=== PATIENT | female | born 1965 | race Caucasian/White ===

== ENCOUNTER → 2022-05-22 11:15 | Outpatient (BNVA) | payer MEDICARE, MEDICAID, SELFPAY | PROVIDERS: Visit Provider Internal Medicine | DX: C20 Malignant neoplasm of rectum (principal); R19.7 Diarrhea, unspecified; N76.0 Acute vaginitis; D64.9 Anemia, unspecified; R53.83 Other fatigue | CPT/HCPCS: 80053; 82378; 82607; 82784; 83516; 83550; 84443; 85025 ==

== ENCOUNTER 2022-05-26 09:29 | Day surgery (SDC) | payer MEDICARE, MEDICAID, SELFPAY ==
[2022-05-23 12:06] VITALS: BMI 22.4
--- NOTE | 2022-05-26 08:30 | W.PM.OPSFHP ---
Same Day Surgery H&P Indication for Procedure/HPI DATE OF PROCEDURE: May 26, 2022 CHIEF COMPLAINT/INDICATIONFOR SURGICAL PROCEDURE: Explosive diarrhea PREOP DIAGNOSIS: Explosive diarrhea PLANNED PROCEDURE: Operation Date: 05/26/22 11:00 Proposed Procedures p [id number], 33546- Flexible sigmoid R19.7(Not Applicable) - Vinnie Daniel MD s Sigmoidoscopy(Not Applicable) - Vinnie Daniel MD Medications/Allergies* Home Medications Medication Instructions Recorded Confirmed Type baclofen 10 mg tablet 10 mg PO TID 05/22/22 05/23/22 History clonazepam 1 mg tablet 1 mg PO TID 05/22/22 05/23/22 History dicyclomine 20 mg tablet 40 mg PO ONCE 05/22/22 05/23/22 History fluticasone propionate 50 2 spray intranasal DAILY 05/22/22 05/23/22 History mcg/actuation nasal spray,suspension (Flonase Allergy Relief) loratadine 10 mg tablet 10 mg PO DAILY PRN Allergy Symptoms 05/22/22 05/23/22 History multivitamin with minerals 1 tab PO DAILY 05/22/22 05/23/22 History (Hair,Skin and Nails) omeprazole 40 mg capsule,delayed 40 mg PO TID 05/22/22 05/23/22 History release peg 400-propylene glycol 0.4 %-0.3 1 drp ophthalmic (eye) TID PRN dry 05/22/22 05/23/22 History % eye drops (Lubricant Eye (PG-PEG eyes 400)) prenat.vits,ashvin,[id number] 1 tab PO DAILY 05/22/22 05/23/22 History topiramate 200 mg tablet 200 mg PO BID 05/22/22 05/23/22 History Allergies/Adverse Reactions Allergy/AdvReac Type Severity Reaction Status Date / Time No Known Allergies Allergy Unverified 05/22/22 09:12 Pertinent History/Comorbid Conditions* Family History (Updated 05/22/22 @ 09:30 by Dhara Mac LPN) Diabetes Mother High cholesterol Mother Social History Smoking and tobacco status: former smoker Quit status (tobacco): has quit using tobacco Second hand smoke exposure: No Smoking risk assessment/counseling performed?: No Pertinent Exam Findings alert, oriented x 3, clear to auscultation bilaterally, regular rate & rhythm, operative site marked and procedure specific exam findings Recommendations Surgery/Procedure today Coding Level of Care Code Acute 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
[2022-05-26 10:06] VITALS: BP 89/71; PULSE 93; RESP 18; TEMP 36.8; O2SAT 96
[2022-05-26] MEDS: sodium chloride 0.9% 1,000 ML 30 ML IV (10:16)
--- NOTE | 2022-05-26 10:40 | ANES.PREANE2 ---
Pre-Anesthetic Assessment Height/Weight: Height 1.6 m Weight 57.606 kg Temp Pulse Resp BP Pulse Ox O2 Del Method 98.3 F 93 18 89/71 96 05/26/22 10:06 05/26/22 10:06 05/26/22 10:06 05/26/22 10:06 05/26/22 10:06 05/26/22 10:06 Preop Diagnosis: Diarrhea Operation Date: 05/26/22 11:00 Proposed Procedures p [id number], 17654- Flexible sigmoid R19.7(Not Applicable) - Vinnie Daniel MD s Sigmoidoscopy(Not Applicable) - Vinnie Daniel MD Familial anesthetic complications: none Was Beta Linda taken within 24 hours: N/A Was Clonidine taken within 24 hours: N/A Last intake: Intake Last Liquid Date 05/25/22 Last Liquid Time 22:00 Last Solid Date 05/22/22 Last Solid Time 17:00 Social No alcohol and No tobacco Exam alert, oriented x 3, clear to auscultation bilaterally and regular rate & rhythm Airway Mallampati: Class II Dentition: full Pulmonary Asthma CV/HEM Atrial Fibrillation low BP GI hx colorectal cancer Neuropsych Neuropathy (hx broken neck) Anesthetic Plan ASA status: 3 Anesthesia: MAC Risk of > 500 ml blood loss (7ml/kg in children): No Medications/Allergies Home Medications Medication Instructions Recorded Confirmed Last Taken Type baclofen 10 mg tablet 10 mg PO TID 05/22/22 05/26/22 05/25/22 History clonazepam 1 mg tablet 1 mg PO TID 05/22/22 05/26/22 05/25/22 History dicyclomine 20 mg tablet 40 mg PO ONCE 05/22/22 05/23/22 05/23/22 History fluticasone propionate 50 2 spray intranasal DAILY 05/22/22 05/23/22 05/22/22 History mcg/actuation nasal spray,suspension (Flonase Allergy Relief) loratadine 10 mg tablet 10 mg PO DAILY PRN Allergy Symptoms 05/22/22 05/23/22 05/24/22 History multivitamin with minerals 1 tab PO DAILY 05/22/22 05/26/22 05/25/22 History (Hair,Skin and Nails) omeprazole 40 mg capsule,delayed 40 mg PO TID 05/22/22 05/26/22 05/26/22 07:00 History release peg 400-propylene glycol 0.4 %-0.3 1 drp ophthalmic (eye) TID PRN dry 05/22/22 05/26/22 05/25/22 History % eye drops (Lubricant Eye (PG-PEG eyes 400)) prenat.vits,ashvin,[id number] 1 tab PO DAILY 05/22/22 05/26/22 05/25/22 History topiramate 200 mg tablet 200 mg PO BID 05/22/22 05/26/22 05/25/22 History Allergies Allergy/AdvReac Type Severity Reaction Status Date / Time No Known Allergies Allergy Unverified 05/26/22 09:57 Current Medications Generic Name Dose Route Start Last Admin Trade Name Freq PRN Reason Stop Dose Admin Sodium Chloride 1,000 mls @ 30 mls/hr 05/26/22 09:45 05/26/22 10:16 Sodium Chloride 0.9% IV 30 mls/hr .Q24H MELI Administration PFSH Anesthesia Family History (Updated 05/22/22 @ 09:30 by Dhara Mac LPN) Father No problems noted. Mother Diabetes High cholesterol Social History (Updated 05/22/22 @ 09:31 by Dhara Mac LPN) Smoking and tobacco status: former smoker Quit status (tobacco): has quit using tobacco Second hand smoke exposure: No Smoking risk assessment/counseling performed?: No Data Anesthesia Cardiac Studies: No Data to Display
[2022-05-26 12:43] VITALS: BP 91/67; PULSE 80; RESP 16; TEMP 36.1; O2SAT 96
[2022-05-26 13:06] VITALS: BP 103/71; PULSE 79; RESP 18; O2SAT 96
--- NOTE | 2022-05-26 14:10 | ANE.PACU2 ---
Inpatient post-anesthesia follow up: Airway intact: Yes Vital signs: Temperature 97.0 F Pulse Rate 79 Respiratory Rate 18 Blood Pressure 103/71 Pulse Oximetry 96 Oxygen Delivery Me thod Room Air Oxygen Flow Rate Fraction of Inspir ed Oxygen Hydration adequate: Yes Nausea and vomiting: No Pain level: 1 Mental status: Baseline
== END 2022-05-26 13:19 | disposition home or self-care (01) ==
PROVIDERS: PCP Internal Medicine; Visit Provider Internal Medicine
PROC: 0DJ08ZZ Inspection of Upper Intestinal Tract, Via Natural or Artificial Opening Endoscopic (ICD-10-PCS; CPT 43235; principal; 2022-05-26 11:00)
PROC: 0DJD8ZZ Inspection of Lower Intestinal Tract, Via Natural or Artificial Opening Endoscopic (ICD-10-PCS; CPT 45330; 2022-05-26 11:00)
DX: R19.7 Diarrhea, unspecified (principal); Z87.891 Personal history of nicotine dependence; I48.91 Unspecified atrial fibrillation; Z85.038 Personal history of other malignant neoplasm of large intestine
CPT/HCPCS: 43239; 45330; 82274; 83630; 87493; 87506; 88305; J2704; J7030

== ENCOUNTER 2022-06-24 06:00 | Outpatient (RCR) | payer MEDICARE, MEDICAID, SELFPAY | END 2022-07-07 23:59 | disposition home or self-care (01) | LOC: TPT 06:00 | PROVIDERS: PCP Internal Medicine; Visit Provider Internal Medicine | DX: M25.569 Pain in unspecified knee (principal); M54.2 Cervicalgia | CPT/HCPCS: 97163 ==

== ENCOUNTER → 2022-07-01 09:02 | Outpatient (BNVA) | payer MEDICARE, MEDICAID, SELFPAY | PROVIDERS: PCP Internal Medicine; Visit Provider Nurse Practitioner Women's Health | DX: N89.8 Other specified noninflammatory disorders of vagina (principal); S31.41XA Laceration without foreign body of vagina and vulva, initial encounter; X58.XXXA Exposure to other specified factors, initial encounter | CPT/HCPCS: 87070; 87205; 87481; 87512; 87799 ==

== ENCOUNTER → 2022-07-17 11:30 | Outpatient (BNVA) | payer MEDICARE, MEDICAID, SELFPAY | PROVIDERS: PCP Internal Medicine; Visit Provider Nurse Practitioner Family | DX: Z86.79 Personal history of other diseases of the circulatory system (principal); M54.6 Pain in thoracic spine; M54.50 Low back pain, unspecified; Z78.0 Asymptomatic menopausal state; Z13.6 Encounter for screening for cardiovascular disorders; R19.7 Diarrhea, unspecified; E55.9 Vitamin D deficiency, unspecified; N95.2 Postmenopausal atrophic vaginitis; M54.2 Cervicalgia; G89.29 Other chronic pain; M25.561 Pain in right knee; I44.0 Atrioventricular block, first degree | CPT/HCPCS: 80053; 80061; 82306; 82607; 82670; 83001; 83002; 83721; 83735; 84144; 84439; 84443; 85025 ==

== ENCOUNTER 2022-07-29 06:00 | Outpatient (RCR) | payer MEDICARE, MEDICAID, SELFPAY | END 2022-08-06 23:55 | disposition home or self-care (01) | LOC: TPT 06:00 | PROVIDERS: PCP Internal Medicine; Visit Provider Internal Medicine | DX: M25.569 Pain in unspecified knee (principal); M54.2 Cervicalgia | CPT/HCPCS: 97163 ==

== ENCOUNTER → 2022-08-05 10:46 | Outpatient (BNVA) | payer MEDICARE, MEDICAID, SELFPAY | PROVIDERS: PCP Internal Medicine; Referring Provider Nurse Practitioner Family; Visit Provider Orthopaedic Surgery | DX: M17.11 Unilateral primary osteoarthritis, right knee (principal) | CPT/HCPCS: 73560; 73565; 99203 ==

== ENCOUNTER 2022-08-07 06:00 | Outpatient (RCR) | payer MEDICARE, MEDICAID, SELFPAY | END 2022-09-06 23:59 | disposition home or self-care (01) | LOC: TPT 06:00 | PROVIDERS: PCP Internal Medicine; Visit Provider Internal Medicine | DX: M25.569 Pain in unspecified knee (principal); M54.2 Cervicalgia | CPT/HCPCS: 97110 ==

== ENCOUNTER → 2022-09-17 10:20 | Outpatient (BNVA) | payer MEDICARE, MEDICAID, SELFPAY | PROVIDERS: PCP Nurse Practitioner Family; Visit Provider Internal Medicine Cardiovascular Disease | DX: R07.9 Chest pain, unspecified (principal); I44.0 Atrioventricular block, first degree; R03.1 Nonspecific low blood-pressure reading; R00.2 Palpitations; I49.8 Other specified cardiac arrhythmias | CPT/HCPCS: 99204 ==

== ENCOUNTER → 2022-10-14 09:22 | Outpatient (BNVA) | payer MEDICARE, MEDICAID, SELFPAY | PROVIDERS: PCP Nurse Practitioner Family; Visit Provider Nurse Practitioner Family | DX: K21.9 Gastro-esophageal reflux disease without esophagitis (principal); I49.8 Other specified cardiac arrhythmias; R07.9 Chest pain, unspecified | CPT/HCPCS: 80053; 80061; 82607; 83721; 85025 ==

== ENCOUNTER 2022-10-16 10:52 | Outpatient (CLI) | payer MEDICARE, MEDICAID, SELFPAY ==
--- NOTE | 2022-10-16 11:15 | USCV_ITS ---
Dhara Garcia Age: 57 Gender: F : 1965 Exam Date: 10/16/2022 11:22 Ordering Phys: Annabella Powers MD ([email or web address]) Technologist: MARIA FERNANDA Exam Location: [facility] [place] Indication: CHEST PAIN BP: 115 / 63 HR: 80 Rhythm: Sinus Technical Quality: Adequate MEASUREMENTS (Male / Female) Normal Values 2D ECHO LVOT Diameter 2.0 cm LV Ejection Fraction MOD 2C 76.4 % LV Ejection Fraction 2C AL 76.1 % LA Diameter 2.1 cm LA Width 2.6 cm LA Height 3.4 cm RA Width 2.6 cm RA Height 3.3 cm Aorta at Sinotubular Diameter 2.8 cm IVC Diameter 1.2 cm M-MODE Aortic Annulus Diameter 3.4 cm LA Ao Ratio MM 0.6 MV E Point Septal Separation 0.5 cm DOPPLER AV Peak Velocity 223.7 cm/s LVOT Peak Velocity 86.0 cm/s AV Area Cont Eq vti 1.3 cm squared AV Area Cont Eq pk 1.2 cm squared MV Peak Velocity 84.0 cm/s MV Area PHT 5.0 cm squared Mitral E to A Ratio 0.8 MV E' Velocity 35.5 cm/s Mitral E to MV E' Ratio 8.8 Mitral E to LV E' Lateral Ratio 9.3 Mitral E to LV E' Septal Ratio 8.3 TR Peak Velocity 200.5 cm/s TR Peak Gradient 16.1 mmHg TR Mean Velocity 170.8 cm/s TR Mean Gradient 12.3 mmHg TR Velocity Time Integral 60.5 cm TV Peak E Velocity 54.0 cm/s Right Atrial Pressure 3.0 mmHg Pulmonary Artery Systolic Pressu 19.1 mmHg PV Peak Velocity 73.0 cm/s RV Acceleration Time 0.1 s RV Ejection Time 0.3 s RV AcT/ET 0.5 FINDINGS Left Ventricle Normal left ventricular size and systolic function, EF 72 %. Mild left ventricular hypertrophy. No regional wall motion abnormalities. Right Ventricle The right ventricle is normal in size and function. Right Atrium The right atrium is normal in size. Left Atrium The left atrium is normal in size. Mitral Valve No gross abnormalities noted Aortic Valve Moderate aortic valve stenosis, mean gradient 12.8 mmHg, EVELIN 1.3 cm squared. Possible bicuspid aortic valve. Peak velocity of 2.24 m/s with a peak gradient of 20 and a mean gradient of 13 mmHg Tricuspid Valve Trace tricuspid valve regurgitation. Pulmonic Valve Structurally normal pulmonic valve without significant stenosis. There is no pulmonic regurgitation. Pericardium Normal pericardium without effusion. Aorta Normal ascending aorta dimension. IVC The inferior vena cava appears normal. CONCLUSIONS Normal left ventricular size and systolic function, EF 72 %. Mild left ventricular hypertrophy. No regional wall motion abnormalities. Moderate aortic valve stenosis, mean gradient 12.8 mmHg, EVELIN 1.3 cm squared. Possible bicuspid aortic valve. Peak velocity of 2.24 m/s with a peak gradient of 20 and a mean gradient of 13 mmHg. Trace tricuspid valve regurgitation. Estimated pulmonary artery peak systolic pressure of 19 mmHg There is no pericardial effusion. There are no intracardiac masses. No similar previous studies are available for comparison Dr Annabella Powers MD [facility] (Electronically Signed) Final Date: 17 October 2022 16:51 S
== END 2022-10-16 10:53 | disposition home or self-care (01) ==
PROVIDERS: PCP Nurse Practitioner Family; Visit Provider Internal Medicine Cardiovascular Disease
DX: R06.09 Other forms of dyspnea (principal)
CPT/HCPCS: 93306

== ENCOUNTER 2022-10-28 09:10 | Outpatient (CLI) | payer MEDICARE, MEDICAID, SELFPAY ==
--- NOTE | 2022-10-28 09:30 | US_ITS ---
WS: [id number] ULTRASOUND ABDOMEN CLINICAL INFORMATION: R10.9 - Unspecified abdominal pain COMPARISON: None. FINDINGS: Liver Size: Normal. Craniocaudal length: 13.7 cm. Echogenicity: Heterogeneous Surface nodularity: None. Mass (size and location): None. Bile ducts Intrahepatic ducts: Normal. Common bile duct diameter: 0.3 cm. Gallbladder Normal. Gallstones: None. Gallbladder sludge: None. Gallbladder wall thickening: None. Pericholecystic fluid: None. Sonographic Rockwell sign: Absent. Pancreas Normal as visualized. Spleen Splenomegaly: None. Craniocaudal length: 8.8 cm. Right kidney: Normal. Hydronephrosis: None. Size: 9.7 cm x 4.1 cm x 4.1 cm Left kidney: Normal. Hydronephrosis: None. Size: 9.5 cm x 4.5 cm x 3.8 cm. Abdominal aorta and IVC Visualized portions are normal. Ascites: None. US/US abdomen complete* [id number] IMPRESSION: 1. Liver is normal in size.Heterogeneous liver echotexture likely due to fatty infiltration. 2. Normal gallbladder. Normal common bile duct. 3. No hydronephrosis in either kidney. 4. Normal spleen.
== END 2022-10-28 09:11 | disposition home or self-care (01) ==
LOC: RAD 09:10
PROVIDERS: PCP Nurse Practitioner Family; Visit Provider Nurse Practitioner Family
DX: R10.9 Unspecified abdominal pain (principal)
CPT/HCPCS: 76700

== ENCOUNTER → 2022-11-05 13:20 | Outpatient (BNVA) | payer MEDICARE, MEDICAID, SELFPAY | PROVIDERS: PCP Nurse Practitioner Family; Visit Provider Nurse Practitioner Family | DX: R39.9 Unspecified symptoms and signs involving the genitourinary system (principal) | CPT/HCPCS: 81000 ==

== ENCOUNTER 2022-12-02 06:00 | Outpatient (RCR) | payer MEDICARE, MEDICAID, SELFPAY | END 2022-12-05 23:59 | disposition home or self-care (01) | LOC: SPT 06:00 | PROVIDERS: PCP Nurse Practitioner Family; Visit Provider Nurse Practitioner Family | DX: M95.2 Other acquired deformity of head (principal) | CPT/HCPCS: 97161 ==

== ENCOUNTER 2022-12-06 06:00 | Outpatient (RCR) | payer MEDICARE, MEDICAID, SELFPAY | END 2023-01-04 23:59 | disposition home or self-care (01) | LOC: SPT 06:00 | PROVIDERS: PCP Nurse Practitioner Family; Visit Provider Nurse Practitioner Family | DX: N95.2 Postmenopausal atrophic vaginitis (principal) | CPT/HCPCS: 97110; 97530 ==

== ENCOUNTER → 2022-12-17 15:31 | Outpatient (BNVA) | payer MEDICARE, MEDICAID, SELFPAY | PROVIDERS: PCP Nurse Practitioner Family; Visit Provider Nurse Practitioner Family | DX: N89.8 Other specified noninflammatory disorders of vagina (principal) | CPT/HCPCS: 81003 ==

== ENCOUNTER → 2023-01-09 10:26 | Outpatient (BNVA) | payer MEDICARE, MEDICAID, SELFPAY | PROVIDERS: PCP Nurse Practitioner Family; Visit Provider Nurse Practitioner Family | DX: M79.641 Pain in right hand (principal); L03.011 Cellulitis of right finger; Z23 Encounter for immunization | CPT/HCPCS: 73130 ==

== ENCOUNTER → 2023-01-15 13:28 | Outpatient (BNVA) | payer MEDICARE, MEDICAID, SELFPAY | PROVIDERS: PCP Nurse Practitioner Family; Referring Provider Nurse Practitioner Family; Visit Provider Nurse Practitioner Family | DX: L03.011 Cellulitis of right finger (principal); W55.01XA Bitten by cat, initial encounter | CPT/HCPCS: 73130; 99213 ==

== ENCOUNTER 2023-01-20 09:30 | Oncology outpatient (recurring) (ONCR) | payer MEDICARE, MEDICAID, SELFPAY | END 2023-02-04 23:59 | disposition home or self-care (01) | PROVIDERS: PCP Nurse Practitioner Family; Visit Provider Internal Medicine Medical Oncology | DX: Z08 Encounter for follow-up examination after completed treatment for malignant neoplasm; Z85.048 Personal history of other malignant neoplasm of rectum, rectosigmoid junction, and anus; M81.0 Age-related osteoporosis without current pathological fracture; Z92.21 Personal history of antineoplastic chemotherapy; Z92.3 Personal history of irradiation; Z87.891 Personal history of nicotine dependence | CPT/HCPCS: 99205 ==

== ENCOUNTER → 2023-01-28 14:08 | Outpatient (BNVA) | payer MEDICARE, MEDICAID, SELFPAY | PROVIDERS: PCP Nurse Practitioner Family; Visit Provider Nurse Practitioner Family | DX: L03.011 Cellulitis of right finger (principal); W55.01XA Bitten by cat, initial encounter | CPT/HCPCS: 99213 ==

== ENCOUNTER 2023-02-03 13:59 | Outpatient (CLI) | payer MEDICARE, MEDICAID, SELFPAY ==
--- NOTE | 2023-02-03 14:00 | XR_ITS ---
WS: [id number] SCREENING DEXA SCAN [email or web address] CLINICAL INFORMATION: Z78.0 - Asymptomatic menopausal state COMPARISON: None. FINDINGS: The L1-L4 bone mineral density measures 1.123 g/cm2. This corresponds to a T score score of -0.5 and Z score of 0.8. Left femoral neck bone mineral density measures 0.858 g/cm2. This corresponds to a T score of -1.2 an d Z score of -0.2. Right femoral neck bone mineral density measures 0.823 g/cm2. This corresponds to a T score -1.5of an d Z score of -0.5. Mean femoral neck bone mineral density measures 0.841 g/cm2. This corresponds to a T score of -1.3 an d Z score of -0.4. XR/XR DEXA axial skeleton* [id number] IMPRESSION: Normal bone mineralization lumbar spine. Osteopenia femoral necks Patient's FRAX calculated 10 year probability for major osteoporotic fracture i s 8.2 % and osteoporotic hip fracture is 0.8%.
== END 2023-02-03 14:00 | disposition home or self-care (01) ==
LOC: RAD 14:01
PROVIDERS: PCP Nurse Practitioner Family; Visit Provider Nurse Practitioner Family
DX: Z13.820 Encounter for screening for osteoporosis (principal); Z78.0 Asymptomatic menopausal state; M85.852 Other specified disorders of bone density and structure, left thigh; M85.851 Other specified disorders of bone density and structure, right thigh
CPT/HCPCS: 77080

== ENCOUNTER → 2023-02-10 09:25 | Outpatient (BNVA) | payer MEDICARE, MEDICAID, SELFPAY | PROVIDERS: PCP Nurse Practitioner Family; Visit Provider Nurse Practitioner Family | DX: R39.9 Unspecified symptoms and signs involving the genitourinary system (principal); M54.2 Cervicalgia; G89.29 Other chronic pain; E78.5 Hyperlipidemia, unspecified; M85.80 Other specified disorders of bone density and structure, unspecified site; K21.9 Gastro-esophageal reflux disease without esophagitis; K58.9 Irritable bowel syndrome, unspecified | CPT/HCPCS: 80053; 80061; 81003; 84443; 85025 ==

== ENCOUNTER 2023-03-23 10:36 | Outpatient (CLI) | payer MEDICARE, MEDICAID, SELFPAY ==
--- NOTE | 2023-03-23 12:00 | CTR_ITS ---
PROCEDURE INFORMATION: Exam: CT Chest With Contrast; Diagnostic Exam date and time: 03/23/2023 12:12 PM Age: 57 years old Clinical indication: Condition or disease; Other: Colorectal cancer; Prior surgery; Surgery date: 6+ months; Surgery type: Hyst; Additional info: Follow up, to be performed in March 2023 TECHNIQUE: Imaging protocol: Diagnostic computed tomography of the chest with contrast. Radiation optimization: All CT scans at this facility use at least one of these dose optimization techniques: automated exposure control; mA and/or kV adjustment per patient size (includes targeted exams where dose is matched to clinical indication); or iterative reconstruction. Contrast material: OMNI 350; Contrast volume: 95 ml; Contrast route: INTRAVENOUS (IV); REPORTING DATA: Count of CT and Cardiac NM exams in prior 12 months: This patient has received 0 known CTs and 0 known cardiac nuclear medicine studies in the 12 months prior to the current study. COMPARISON: US abdomen complete* [id number] 10/28/2022 9:28 AM RADIATION DOSE METRICS: Total DLP (mGy-cm): 622.51 FINDINGS: Lungs: Lingular 5.6 mm pulmonary nodule abutting the major fissure, series 4, image 44. Emphysematous changes. Right lower lobe calcified granuloma. Pleural spaces: Unremarkable. No pneumothorax. No pleural effusion. Heart: Unremarkable. No cardiomegaly. No pericardial effusion. Lymph nodes: Unremarkable. No enlarged lymph nodes. Vasculature: Ascending thoracic aorta dilated at 3.6 cm. Bones/joints: Unremarkable. No acute fracture. Soft tissues: Unremarkable. COMMENTS: In the absence of a history or active diagnosis of lung cancer, it is recommended that this patient with emphysema be evaluated for enrollment in a low dose CT lung cancer screening program. PROCEDURE INFORMATION: Exam: CT Abdomen And Pelvis With Contrast Exam date and time: 03/23/2023 12:12 PM Age: 57 years old Clinical indication: Condition or disease; Other: Colorectal cancer; Prior surgery; Surgery date: 6+ months; Surgery type: Hyst; Additional info: Follow up, to be performed in March 2023 TECHNIQUE: Imaging protocol: Computed tomography of the abdomen and pelvis with contrast. Radiation optimization: All CT scans at this facility use at least one of these dose optimization techniques: automated exposure control; mA and/or kV adjustment per patient size (includes targeted exams where dose is matched to clinical indication); or iterative reconstruction. Contrast material: OMNI 350; Contrast volume: 95 ml; Contrast route: INTRAVENOUS (IV); REPORTING DATA: Count of CT and Cardiac NM exams in prior 12 months: This patient has received 0 known CTs and 0 known cardiac nuclear medicine studies in the 12 months prior to the current study. COMPARISON: US abdomen complete* [id number] 10/28/2022 9:28 AM RADIATION DOSE METRICS: Total DLP (mGy-cm): 622.51 FINDINGS: Liver: Hepatic steatosis. Gallbladder and bile ducts: Normal. No calcified stones. No ductal dilation. Pancreas: Normal. No ductal dilation. Spleen: Normal. No splenomegaly. Adrenal glands: Normal. No mass. Kidneys and ureters: Normal. No hydronephrosis. Stomach and bowel: Constipation. Appendix: No evidence of appendicitis. Intraperitoneal space: Unremarkable. No free air. No significant fluid collection. Vasculature: Unremarkable. No abdominal aortic aneurysm. Lymph nodes: Unremarkable. No enlarged lymph nodes. Urinary bladder: Unremarkable as visualized. Reproductive: Unremarkable as visualized. Bones/joints: Unremarkable. No acute fracture. Soft tissues: Unremarkable. CT/CT chest abdpel w/*[id number] IMPRESSION: 1. Lingular 5.6 mm pulmonary nodule abutting the major fissure, series 4, image 44. 2. Ascending thoracic aorta dilated at 3.6 cm. 3. Emphysematous changes. 4. Right lower lobe calcified granuloma. IMPRESSION: 1. Negative for acute inflammatory process in the abdomen or pelvis. 2. Hepatic steatosis. 3. Constipation.
[2023-03-23] MEDS: iohexol 350 mg/mL 500 mL Btl (per mL) PO (12:16)
[2023-03-23] MEDS: iohexol 350 mg/mL 500 mL Btl (per mL) IV (12:18)
== END 2023-03-23 10:37 | disposition home or self-care (01) ==
PROVIDERS: PCP Nurse Practitioner Family; Visit Provider Internal Medicine Medical Oncology
DX: C21.1 Malignant neoplasm of anal canal (principal); Z90.710 Acquired absence of both cervix and uterus; R91.1 Solitary pulmonary nodule; K76.0 Fatty (change of) liver, not elsewhere classified; K59.00 Constipation, unspecified
CPT/HCPCS: 71260; 74177; Q9967

== ENCOUNTER → 2023-06-09 15:43 | Outpatient (BNVA) | payer MEDICARE, MEDICAID, SELFPAY | PROVIDERS: PCP Nurse Practitioner Family; Visit Provider Nurse Practitioner Family | DX: R30.0 Dysuria (principal) | CPT/HCPCS: 81003 ==

== ENCOUNTER → 2023-07-23 08:58 | Outpatient (BNVA) | payer MEDICARE, MEDICAID, SELFPAY | PROVIDERS: PCP Nurse Practitioner Family; Visit Provider Nurse Practitioner Family | DX: N89.8 Other specified noninflammatory disorders of vagina (principal) | CPT/HCPCS: 81003; 87491; 87591 ==

== ENCOUNTER → 2023-10-01 12:47 | Outpatient (BNVA) | payer MEDICARE, MEDICAID, SELFPAY | PROVIDERS: PCP Nurse Practitioner Family; Visit Provider Nurse Practitioner Family | DX: R19.7 Diarrhea, unspecified (principal) | CPT/HCPCS: 87045; 87177; 87209; 87338; 87427; 87449; 87493 ==

== ENCOUNTER → 2023-11-02 10:41 | Outpatient (BNVA) | payer MEDICARE, MEDICAID, SELFPAY | PROVIDERS: PCP Nurse Practitioner Family; Visit Provider Nurse Practitioner Family | DX: R41.3 Other amnesia (principal); E78.5 Hyperlipidemia, unspecified; Z79.899 Other long term (current) drug therapy | CPT/HCPCS: 80053; 80061; 81003; 82306; 82607; 83735; 84443; 85025 ==

== ENCOUNTER → 2023-12-04 08:11 | Outpatient (BNVA) | payer MEDICARE, MEDICAID, SELFPAY | PROVIDERS: PCP Nurse Practitioner Family; Visit Provider Specialist | DX: R41.3 Other amnesia (principal); G43.709 Chronic migraine without aura, not intractable, without status migrainosus | CPT/HCPCS: 96116; 99205 ==

== ENCOUNTER 2023-12-25 09:30 | Outpatient (CLI) | payer MEDICARE, MEDICAID, SELFPAY ==
--- NOTE | 2023-12-25 09:38 | XR_ITS ---
WS: [id number] Exam: XR cervical spine 3V* [id number] Date/Time of Exam: 12/25/2023 9:45 AM Reason For Exam: M54.2 - Cervicalgia There is posterior fusion of the cervical spine extending from C4-C7 with pedicle screws and posterio r rods. Anterior fusion hardware noted at C4-5. The fusion is ossified and in satisfactory alignment. No sign of hardware complication. Degenerative facet changes at C3-3 and C3-4. Paraspinal soft tissu es are unremarkable. The odontoid is intact. IMPRESSION: 1. Intact cervical fusion from C4-C7. 2. No fracture or malalignment. Moderate degenerative changes.
== END 2023-12-25 09:31 | disposition home or self-care (01) ==
LOC: LAB 09:32
PROVIDERS: PCP Nurse Practitioner Family; Visit Provider Nurse Practitioner Family
DX: M54.2 Cervicalgia (principal); G89.29 Other chronic pain; M43.22 Fusion of spine, cervical region
CPT/HCPCS: 72040

== ENCOUNTER 2023-12-28 06:00 | Outpatient (RCR) | payer MEDICARE, MEDICAID, SELFPAY | END 2024-01-05 23:59 | disposition home or self-care (01) | LOC: TPT 06:00 | PROVIDERS: PCP Nurse Practitioner Family; Visit Provider Nurse Practitioner Family | DX: M54.2 Cervicalgia (principal); G89.29 Other chronic pain | CPT/HCPCS: 97110; 97163 ==

== ENCOUNTER 2024-01-20 13:44 | Outpatient (RCR) | payer MEDICARE, MEDICAID, SELFPAY | END 2024-02-05 23:59 | disposition home or self-care (01) | LOC: TPT 13:44 | PROVIDERS: PCP Nurse Practitioner Family; Visit Provider Nurse Practitioner Family | DX: M54.2 Cervicalgia (principal); G89.29 Other chronic pain | CPT/HCPCS: 97110; 97140 ==

== ENCOUNTER 2024-01-27 12:31 | Outpatient (CLI) | payer MEDICARE, MEDICAID, SELFPAY ==
--- NOTE | 2024-01-27 12:39 | MR_ITS ---
WS: [id number] MRI HEAD WITHOUT CONTRAST TECHNIQUE: Sagittal T1, T2 axial, T2 axial FLAIR, axial and coronal T1 images, axial susceptibility w eighted imaging, axial diffusion weighted images, and coronal T2 images were obtained. CLINICAL INFORMATION: MEMORY LOSS COMPARISON: None. FINDINGS: No evidence of restricted diffusion to suggest acute ischemia. Minimal cerebellar tonsillar ectopia e ccentric to the LEFT. No significant crowding of the foramen magnum. Mild to moderate patchy supraten torial white matter changes can be seen with hypertension, diabetes, and small vessel disease in a pa tient this age. No significant parenchymal volume loss. Normal vascular flow voids at the skull base. No extra-axial fluid collections. No evidence of mass or mass effect. Paranasal sinuses are well aer ated. Normal posterior nasopharynx. Mastoid air cells are well aerated. No hemosiderin on the susceptibly weighted images. Normal optic chiasm and pituitary infundibulum. Te mporal lobes and hippocampal formations are normal in appearance. No signal abnormalities in the linnea al temporal lobes. Proximal 7th and 8th cranial nerves appear grossly normal. No other remarkable abn ormalities on this noncontrast study. MR/MR head wo con* [id number] IMPRESSION: 1. No evidence of restricted diffusion to suggest acute ischemia. 2. Mild to moderate patchy supratentorial white matter changes can be seen wit h hypertension, diabetes, or small vessel disease in a patient this age. No sig nificant parenchymal volume loss. 3. Temporal lobes and hippocampal formations are normal in appearance. 4. No signal abnormalities in the mesial temporal lobes. No significant focal atrophy. 5. Normal optic chiasm and pituitary infundibulum. 6. No hemosiderin on susceptibility-weighted images. 7. Minimal incidental cerebellar tonsillar ectopia. 8. No other remarkable findings.
== END 2024-01-27 12:32 | disposition home or self-care (01) ==
LOC: RAD 12:31
PROVIDERS: PCP Nurse Practitioner Family; Visit Provider Specialist
DX: R41.3 Other amnesia (principal)
CPT/HCPCS: 70551

== ENCOUNTER 2024-02-06 06:00 | Outpatient (RCR) | payer MEDICARE, MEDICAID, SELFPAY | END 2024-03-06 23:59 | disposition home or self-care (01) | LOC: TPT 06:00 | PROVIDERS: PCP Nurse Practitioner Family; Visit Provider Nurse Practitioner Family | DX: M54.2 Cervicalgia (principal); G89.29 Other chronic pain | CPT/HCPCS: 97110; 97140; 97164 ==

== ENCOUNTER 2024-02-10 09:36 | Outpatient (CLI) | payer MEDICARE, MEDICAID, SELFPAY ==
--- NOTE | 2024-02-10 10:15 | MR_ITS ---
WS: [id number] MRI CERVICAL SPINE NONCONTRAST TECHNIQUE: Sagittal T1, T2 and STIR imaging. Axial T2, gradient, and fiesta imaging. CLINICAL INFORMATION: M54.2 - Cervicalgia COMPARISON: None. FINDINGS: Straightening of the normal cervical lordosis. Disc bulging worse at C3-C4. Small disc protrusions in the upper thoracic spine at C7-T1, T1-2, T2-3 with slight contact of the cervical cord. Anterior cer vical plate fusion C4-5. Interbody bony fusion C4-C6. Posterior marisol and screw fixation C4-C7. Wide de compressive laminectomy defects. C2-C3: Moderate facet arthropathy. Mild LEFT foraminal narrowing. Spinal canal is patent. C3-C4: Disc osteophyte complex with slight contact of the cervical cord. Mild central canal stenosis. Mild LEFT foraminal narrowing. Moderate facet arthropathy. C4-C5: Prior postoperative changes with laminectomy defects. Spinal canal and foramen are patent. C5-C6: Prior postoperative changes. Decompressive laminectomy defects. Spinal canal and foramen are p atent. C6-C7: Decompressive laminectomies. Mild LEFT and no significant RIGHT foraminal narrowing. Spinal ca nal is patent. C7-T1: Shallow central disc protrusion. Mild central canal stenosis. Bilateral foraminal protrusions with moderate to severe LEFT and moderate RIGHT foraminal narrowing. Mild central canal stenosis T1-T2 and T2-3 with small central protrusions. Moderate LEFT foraminal na rrowing T1-2. In addition, bilateral foraminal foraminal protrusions at T2-3 only covered on the sagittal imaging w ith moderate LEFT greater than RIGHT foraminal narrowing. Small RIGHT thyroid nodule measuring 9 mm. Visualized brain stem structures: Normal. Prevertebral soft tissues: Normal. MR/MR cervical spin wo con* [id number] IMPRESSION: 1. Straightening of the normal cervical doses with postoperative changes descr ibed above. 2. Mild central canal stenosis C3-C4 with a small central protrusion and sligh t contact of the cervical cord. 3. Moderate to severe LEFT C7-T1 foraminal narrowing with a LEFT foraminal pro trusion. 4. Mild central canal stenosis at C7-T1, T1-2 and and T2-3. 5. Small bilateral foraminal protrusions at T1-2 and T2-3 with bilateral segundo inal narrowing.
== END 2024-02-10 09:37 | disposition home or self-care (01) ==
LOC: RAD 09:37
PROVIDERS: PCP Nurse Practitioner Family; Visit Provider Nurse Practitioner Family
DX: M51.24 Other intervertebral disc displacement, thoracic region (principal); M99.61 Osseous and subluxation stenosis of intervertebral foramina of cervical region; M99.62 Osseous and subluxation stenosis of intervertebral foramina of thoracic region; M47.892 Other spondylosis, cervical region; M25.78 Osteophyte, vertebrae; M96.1 Postlaminectomy syndrome, not elsewhere classified; E04.1 Nontoxic single thyroid nodule
CPT/HCPCS: 72141

== ENCOUNTER 2024-02-25 15:55 | Outpatient (CLI) | payer MEDICARE, MEDICAID, SELFPAY | END 2024-02-25 15:56 | disposition home or self-care (01) | LOC: SPT 15:55 | PROVIDERS: PCP Nurse Practitioner Family; Visit Provider Orthopaedic Surgery | DX: Z46.89 Encounter for fitting and adjustment of other specified devices (principal); G89.29 Other chronic pain; M54.2 Cervicalgia | CPT/HCPCS: 97760; 99204; L0172 ==

== ENCOUNTER → 2024-03-30 12:03 | Outpatient (BNVA) | payer MEDICARE, MEDICAID, SELFPAY | PROVIDERS: PCP Nurse Practitioner Family; Visit Provider Nurse Practitioner Family | DX: R30.0 Dysuria (principal); R10.9 Unspecified abdominal pain; C21.0 Malignant neoplasm of anus, unspecified; K58.2 Mixed irritable bowel syndrome; N95.2 Postmenopausal atrophic vaginitis; M54.2 Cervicalgia; G89.29 Other chronic pain | CPT/HCPCS: 81003; 87086 ==

== ENCOUNTER → 2024-04-15 13:14 | Outpatient (BNVA) | payer MEDICARE, MEDICAID, SELFPAY | PROVIDERS: PCP Nurse Practitioner Family; Visit Provider Nurse Practitioner Family | DX: N89.8 Other specified noninflammatory disorders of vagina (principal) | CPT/HCPCS: 87070; 87205 ==

== ENCOUNTER → 2024-05-24 14:34 | Outpatient (BNVA) | payer MEDICARE, MEDICAID, SELFPAY | PROVIDERS: PCP Nurse Practitioner Family; Visit Provider Orthopaedic Surgery | DX: M47.12 Other spondylosis with myelopathy, cervical region (principal) | CPT/HCPCS: 99214 ==

== ENCOUNTER 2024-05-30 08:00 | Oncology outpatient (recurring) (ONCR) | payer MEDICARE, MEDICAID, SELFPAY ==
[2024-05-13 07:54] LABS: Basophils % 0.2 %; Eosinophils # 0.1 10^3/uL (0.0-0.8); Eosinophils % 2.2 %; Hematocrit 41.3 % (36-47); Lymphocytes # 1.9 10^3/uL (0.8-4.8); Lymphocytes % 43.4 %; Mean Corpuscular HGB Conc 33.9 g/dL (30-55); Mean Corpuscular Hemoglobin 32.4 pg (27-33); Mean Corpuscular Volume 95.6 fl (85-98); Mean Platelet Volume 9.3 fL (7.4-10.4); Monocytes # 0.4 10^3/uL (0.2-0.9); Monocytes % 7.8 %; Neutrophils # 2.07 10^3/uL (1.8-7.7); Neutrophils % 46.4 %; Nucleated Red Blood Cells % 0 %; Platelet Count 195 10^3/cmm (157-399); Red Blood Count 4.32 10^6/uL (3.85-5.65); Red Cell Distribution Width 13.2 % (12.1-15.1); White Blood Count 4.47 10^3/uL (3.29-11.43)
[2024-05-13 08:14] LABS: Alanine Aminotransferase 16 U/L (0-33); Albumin Level 4.3 g/dL (3.5-5.2); Alkaline Phosphatase 82 U/L (35-105); Anion Gap 15.4 (5-19); Aspartate Amino Transferase 19 U/L (0-32); Blood Urea Nitrogen 38 mg/dL (6-20); Calcium 9.5 mg/dL (8.5-10.5); Carbon Dioxide 22 mmol/L (22-29); Chloride 108 mmol/L (98-107); Globulin 2.5 g/dL (1.3-4.6); Glomerular Filtration Rate 56.7 mL/min (90-130); Glucose 99 mg/dL (65-115); Osmolality Calculated 303 mOsm/kg (285-295); Potassium 3.4 mmol/L (3.5-5.1); Sodium 142 mmol/L (136-145); Total Bilirubin 0.2 mg/dL (0.15-1.2); Total Protein 6.8 g/dL (6.6-8.7)
--- NOTE | 2024-05-30 08:00 | CTR_ITS ---
PROCEDURE INFORMATION: Exam: CT Chest With Contrast; Diagnostic Exam date and time: 05/30/2024 9:20 AM Age: 58 years old Clinical indication: Constipation. Colorectal cancer; prior hysterectomy. History of anal cancer and pulmonary nodule TECHNIQUE: Imaging protocol: Diagnostic computed tomography of the chest with contrast. Radiation optimization: All CT scans at this facility use at least one of these dose optimization techniques: automated exposure control; mA and/or kV adjustment per patient size (includes targeted exams where dose is matched to clinical indication); or iterative reconstruction. Contrast material: OMNI 350; Contrast volume: 95 ml; Contrast route: INTRAVENOUS (IV); COMPARISON: CT chest abdpel w/*[id number] 03/23/2023 12:12 PM RADIATION DOSE METRICS: Total DLP (mGy-cm): 569.71 FINDINGS: Lungs: Incidental benign calcified granuloma in the right lower lobe. Pleural spaces: Unremarkable. No pneumothorax. No pleural effusion. Heart: Unremarkable. No cardiomegaly. No pericardial effusion. Lymph nodes: Unremarkable. No enlarged lymph nodes. Vasculature: Aortic root is upper limits of normal in caliber measuring 4.0 cm. The ascending thoracic aorta is normal in caliber measuring 3.3 cm. Intraperitoneal space: There is a small defect at the posterior aspect of the left hemidiaphragm measuring 9 mm in the AP dimension with a small amount of mesenteric fat herniating into the left lower thorax. Bones/joints: There are degenerative changes in the thoracic spine. Soft tissues: Unremarkable. PROCEDURE INFORMATION: Exam: CT Abdomen And Pelvis With Contrast Exam date and time: 05/30/2024 9:20 AM Age: 58 years old Clinical indication: Constipation. Colorectal cancer; prior hysterectomy. History of anal cancer and pulmonary nodule TECHNIQUE: Imaging protocol: Computed tomography of the abdomen and pelvis with contrast. Radiation optimization: All CT scans at this facility use at least one of these dose optimization techniques: automated exposure control; mA and/or kV adjustment per patient size (includes targeted exams where dose is matched to clinical indication); or iterative reconstruction. Contrast material: OMNI 350; Contrast volume: 95 ml; Contrast route: INTRAVENOUS (IV); COMPARISON: CT chest abdpel w/*[id number] 03/23/2023 12:12 PM RADIATION DOSE METRICS: Total DLP (mGy-cm): 569.71 FINDINGS: Liver: Regional decreased attenuation of the left hepatic lobe at the ligamentum teres suggestive of focal fatty infiltration. Gallbladder and biliary ducts: Normal. No calcified stones. No ductal dilation. Pancreas: Normal. No ductal dilation. Spleen: Normal. No splenomegaly. Adrenal glands: Normal. No mass. Kidneys and ureters: Normal. No hydronephrosis. Stomach and bowel: Colonic constipation is present. Anorectal mucosal thickening. Appendix: A normal appendix is identified. Intraperitoneal space: Unremarkable. No free air. No significant fluid collection. Vasculature: Unremarkable. No abdominal aortic aneurysm. Lymph nodes: Unremarkable. No enlarged lymph nodes. Urinary bladder: Unremarkable as visualized. Reproductive: The uterus is not visualized, consistent with hysterectomy. Bones/joints: Unremarkable. No acute fracture. Soft tissues: Unremarkable. CT/CT chest abdpel w/*[id number] IMPRESSION: 1. No acute findings. Incidentally noted is a benign calcified granuloma in the right lower lobe. 2. Small defect at the posterior aspect of the left hemidiaphragm as described above. IMPRESSION: 1. There is anorectal mucosal thickening. This may represent a nonspecific proctitis. Residual/recurrent neoplasm cannot be excluded. 2. Colonic constipation is present.
[2024-05-30 09:10] LABS: Basophils % 0.4 %; Eosinophils # 0.1 10^3/uL (0.0-0.8); Eosinophils % 1.9 %; Hematocrit 43.6 % (36-47); Lymphocytes # 2.1 10^3/uL (0.8-4.8); Lymphocytes % 44.3 %; Mean Corpuscular Hemoglobin 31.9 pg (27-33); Mean Corpuscular Volume 96.7 fl (85-98); Mean Platelet Volume 9.6 fL (7.4-10.4); Monocytes # 0.4 10^3/uL (0.2-0.9); Monocytes % 8.6 %; Neutrophils # 2.06 10^3/uL (1.8-7.7); Neutrophils % 44.6 %; Nucleated Red Blood Cells % 0 %; Platelet Count 196 10^3/cmm (157-399); Red Blood Count 4.51 10^6/uL (3.85-5.65); Red Cell Distribution Width 13.2 % (12.1-15.1); White Blood Count 4.63 10^3/uL (3.29-11.43)
[2024-05-30 09:36] LABS: Alanine Aminotransferase 26 U/L (0-33); Albumin Level 4.5 g/dL (3.5-5.2); Alkaline Phosphatase 82 U/L (35-105); Aspartate Amino Transferase 25 U/L (0-32); Blood Urea Nitrogen 19 mg/dL (6-20); Calcium 9.2 mg/dL (8.5-10.5); Carbon Dioxide 21 mmol/L (22-29); Chloride 108 mmol/L (98-107); Creatinine Clr Calc Pharmacy 54.3766; Globulin 2.8 g/dL (1.3-4.6); Glomerular Filtration Rate 64.1 mL/min (90-130); Glucose 86 mg/dL (65-115); Osmolality Calculated 294 mOsm/kg (285-295); Sodium 141 mmol/L (136-145); Total Bilirubin 0.3 mg/dL (0.15-1.2); Total Protein 7.3 g/dL (6.6-8.7)
[2024-05-30] MEDS: iohexol 350 mg/mL 500 mL Btl (per mL) PO (09:47)
[2024-05-30] MEDS: iohexol 350 mg/mL 500 mL Btl (per mL) IV (09:48)
[2024-05-30 10:02] LABS: Bilirubin Urine Negative (Negative); Blood Urine Negative (Negative); Glucose Urine UA Negative (Normal); Ketones Urine Negative (Negative); Leukocyte Esterase Urine Negative (Negative); Nitrate Urine Negative (Negative); Protein Urine Negative (Negative); Specific Gravity, Urine 1.019 (1.005-1.030); Urine Appearance Clear (CLEAR); Urine Color Yellow (Yellow); pH Urine 6.5 (5-7)
[2024-05-30 10:08] LABS: Add Urine Microscopic? YES; Bacteria Urine None Seen /hpf; Hyaline Casts Urine 0-4 /lpf; RBC Urine 0-2 /hpf (0-2); Squamous Epithelial Cell Urine 0-5 /hpf (0-5); WBC Urine 0-5 /hpf (0-5)
== END 2024-06-06 23:59 | disposition home or self-care (01) ==
LOC: RAD 08:08 → ONCMED 06-02 09:34
PROVIDERS: Absent Provider Orthopaedic Surgery; PCP Nurse Practitioner Family; Visit Provider Nurse Practitioner Family
DX: C21.0 Malignant neoplasm of anus, unspecified (principal); R91.1 Solitary pulmonary nodule; Z53.9 Procedure and treatment not carried out, unspecified reason; Z01.818 Encounter for other preprocedural examination; K59.09 Other constipation; K62.89 Other specified diseases of anus and rectum; J84.10 Pulmonary fibrosis, unspecified
CPT/HCPCS: 36415; 71260; 74177; 80053; 81001; 85025; 99213

== ENCOUNTER → 2024-06-09 08:35 | Outpatient (BNVA) | payer MEDICARE, MEDICAID, SELFPAY | PROVIDERS: PCP Nurse Practitioner Family; Referring Provider Nurse Practitioner Family; Visit Provider Student in an Organized Health Care Education/Training Program | DX: Z12.11 Encounter for screening for malignant neoplasm of colon (principal) | CPT/HCPCS: 99024; 99204 ==

== ENCOUNTER 2024-06-27 05:43 | Day surgery (SDC) | payer MEDICARE, MEDICAID, SELFPAY ==
[2024-06-27 06:18] VITALS: BP 105/70; PULSE 72; RESP 18; TEMP 36.1; O2SAT 97; BMI 21.9
[2024-06-27] MEDS: sodium chloride 0.9% 1,000 ML 30 ML IV (06:38)
--- NOTE | 2024-06-27 06:53 | P.ANESASSM_ITS ---
Pre-Anesthetic Assessment Height/Weight: Height 1.57 m Weight 54.431 kg Temp Pulse Resp BP Pulse Ox O2 Del Method 97.0 F L 72 18 105/70 97 Room Air 06/27/24 06:18 06/27/24 06:18 06/27/24 06:18 06/27/24 06:18 06/27/24 06:18 06/27/24 06:18 Preop Diagnosis: screening Operation Date: 06/27/24 07:00 Proposed Procedures p COLONSCOPY- 48153,Z12.11(Not Applicable) - Peter Noonan MD Familial anesthetic complications: none Was Beta Linda taken within 24 hours: N/A Was Clonidine taken within 24 hours: N/A Last intake: Intake Last Liquid Date 06/26/24 Last Liquid Time 22:00 Last Solid Date 06/25/24 Last Solid Time 20:00 Social No alcohol and No tobacco Exam alert, oriented x 3, clear to auscultation bilaterally and No regular rate & rhythm Airway Submandibular: within normal limits Cervical ROM: within normal limits Mallampati: Class II Dentition: full History/ROS No significant history except as noted Pulmonary None reported CV/HEM Atrial Fibrillation None reported Hepatic None reported GI Hiatal Hernia Metabolic None reported Musc/skel cervical spine fusion Neuropsych None reported Anesthetic Plan ASA status: 2 Anesthesia: MAC Risk of > 500 ml blood loss (7ml/kg in children): No Medications/Allergies Home Medications Medication Instructions Recorded Confirmed Last Taken Type clonazepam 1 mg tablet 1 mg PO TID 05/22/22 06/23/24 06/27/24 05:00 History multivitamin with minerals 1 tab PO DAILY 05/22/22 06/23/24 06/24/24 History (Hair,Skin and Nails tablet) topiramate 200 mg tablet 200 mg PO BID 05/22/22 06/23/24 06/26/24 History acetaminophen 325 mg tablet 325 mg PO QID PRN Pain (Scale 01/20/23 06/23/24 06/24/24 History (Tylenol) Score 1-3) cholecalciferol (vitamin D3) 50 50 mcg PO DAILY 08/18/23 06/23/24 06/26/24 History mcg (2,000 unit) capsule krill oil 500 mg capsule 500 mg PO DAILY 08/18/23 06/09/24 06/24/24 History mecobalamin (vitamin B12) 5,000 5,000 mcg PO DAILY 08/18/23 06/23/24 06/24/24 History mcg disintegrating tablet cervical collar #1 ea 02/25/24 06/09/24 Unknown Rx fluconazole 150 mg tablet 150 mg PO Q3D 2 doses #2 tabs 05/23/24 06/23/24 06/26/24 Rx Happy V- pre pro biotic as directed 06/09/24 06/09/24 06/26/24 History fluticasone propionate 50 See Rx Instructions .Route 06/15/24 06/23/24 06/26/24 Rx mcg/actuation nasal .COMPLEX #16 grams spray,suspension baclofen 10 mg tablet 10 mg PO TID 06/23/24 06/23/24 06/26/24 History pantoprazole 40 mg tablet,delayed 40 mg PO DAILY 06/23/24 06/23/24 06/26/24 History release Allergies Allergy/AdvReac Type Severity Reaction Status Date / Time No Known Allergies Allergy Verified 06/09/24 09:01 Current Medications Generic Name Dose Route Start Last Admin Trade Name Freq PRN Reason Stop Dose Admin Sodium Chloride 1,000 mls @ 30 mls/hr 06/27/24 06:00 06/27/24 06:38 Sodium Chloride 0.9% IV 06/28/24 05:59 30 mls/hr .Q24H MELI Administration PFSH Anesthesia Medical History Enrolled in chronic care management Hyperlipidemia Chronic anxiety Chronic migraine Osteoporosis Hiatal hernia Anal cancer Treated in 2019 with chemoradiation GERD (gastroesophageal reflux disease) 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 S/P cervical spinal fusion x 3-- 1995, 2005, 2008 Family History Mother Diabetes Hypercholesteremia Stroke Dementia Hypertension Psychiatric illness Brother Stroke Bleeding disorder Cancer Hyperlipidemia Hypertension Psychiatric illness Grandfather Heart disease Maternal Dementia CAD (coronary artery disease) Grandmother Dementia Sister Hyperlipidemia Hypertension Psychiatric illness Denies family history of Colon cancer Ovarian cancer Clotting disorder Chronic kidney disease (CKD) Breast cancer Suicide Anesthesia complication Family history of premature coronary artery disease Lung disease Uterine cancer Thyroid disease Social History Smoking and tobacco/nicotine status: never used tobacco/nicotine Quit status (tobacco/nicotine): has quit using Year quit tobacco: quit 2019 smoked 43 years Second hand smoke exposure: No Alcohol intake: never Substance/Drug Use: never Lives independently: Yes Marital status: Single Current occupational status: disabled Special maría needs: No Data Anesthesia Cardiac Studies: Echocardiogram 10/16/22 Cardiac Event Monitor 09/17/22
--- NOTE | 2024-06-27 07:02 | W.PM.OPSUD ---
Surgery/Procedure H&P Update DATE OF PROCEDURE: June 27, 2024 DATE H&P PERFORMED: 06/09/24 H&P UPDATE INFORMATION: I have reviewed H&P completed within last 30 days, I have examined patient prior to procedure and No changes to prior documentation PREOP DIAGNOSIS: screening PLANNED PROCEDURE: Operation Date: 06/27/24 07:00 Proposed Procedures p COLONSCOPY- 31084,Z12.11(Not Applicable) - Peter Noonan MD
[2024-06-27 07:38] VITALS: BP 93/65; PULSE 67; RESP 18; TEMP 36.2; O2SAT 94
--- NOTE | 2024-06-27 07:46 | PM.MISC ---
Miscellaneous Note Note: Diagnostic colonoscopy converted to sigmoidoscopy due to redundant sigmoid
[2024-06-27 07:56] VITALS: BP 88/63; PULSE 69; RESP 17; O2SAT 95
[2024-06-27 08:13] VITALS: BP 95/70; PULSE 68; RESP 18; O2SAT 97
--- NOTE | 2024-06-27 08:40 | ANE.PACU2 ---
Inpatient post-anesthesia follow up: Airway intact: Yes Vital signs: Temperature 97.2 F Pulse Rate 68 Respiratory Rate 18 Blood Pressure 95/70 Pulse Oximetry 97 Oxygen Delivery Me thod Room Air Oxygen Flow Rate Fraction of Inspir ed Oxygen Hydration adequate: Yes Nausea and vomiting: No Pain level: 1 Mental status: Baseline
== END 2024-06-27 08:44 | disposition home or self-care (01) ==
PROVIDERS: PCP Nurse Practitioner Family; Visit Provider Student in an Organized Health Care Education/Training Program
PROC: 0DJD8ZZ Inspection of Lower Intestinal Tract, Via Natural or Artificial Opening Endoscopic (ICD-10-PCS; CPT 45330; principal; 2024-06-27 07:00)
DX: R93.89 Abnormal findings on diagnostic imaging of other specified body structures (principal); Z85.048 Personal history of other malignant neoplasm of rectum, rectosigmoid junction, and anus; R15.9 Full incontinence of feces; E78.5 Hyperlipidemia, unspecified; F41.9 Anxiety disorder, unspecified; K21.9 Gastro-esophageal reflux disease without esophagitis; I48.91 Unspecified atrial fibrillation; K57.30 Diverticulosis of large intestine without perforation or abscess without bleeding; K64.0 First degree hemorrhoids
CPT/HCPCS: 45330; J2704; J3490; J7030

== ENCOUNTER 2024-06-30 12:08 | Emergency (ER) | payer MEDICARE, MEDICAID, SELFPAY ==
[2024-06-30] VITALS (9 sets, daily range): BP systolic 142–154; BP diastolic 89–103; PULSE 60–74; RESP 17–18; TEMP 36.4; O2SAT 85–97; BMI 21.5
--- NOTE | 2024-06-30 12:11 | XR_ITS ---
WS: [id number] Exam: XR abdomen min 2V [id number] Date/Time of Exam: 06/30/2024 12:20 PM Reason For Exam: abd pain No sign of bowel obstruction or pneumoperitoneum. Moderate amount retained stool in the rectosigmoid and LEFT colon. No sign of organ enlargement. Bony structures are intact. XR/XR abdomen min 2V [id number] IMPRESSION: 1. No acute abdominal finding. Moderate amount retained stool in the large eli l.
--- NOTE | 2024-06-30 12:17 | ED_ITS ---
HPI - Abdominal Pain 2 General: Chief Complaint: Abdominal Pain Stated Complaint: RUQ pain Time Seen by Provider: 06/30/24 12:09 History of Present Illness: 58-year-old female who presents emergenc y room with right upper quadrant abdominal pain that radiates into her back. She said this started this morning and was fairly bad and then got better and she went voted and then when she came back home it was hurting severely and she Indipam to call an ambulance. She just recently had some vomiting. None initially. She had a colonoscopy on Thursday and it was not completed she says because they told her she had an obstruction. No fevers. No chest pain. No shortness of breath. No cough. Related Data Home Medications Medication Instructions Recorded Confirmed clonazepam 1 mg tablet 1 mg PO TID 05/22/22 06/30/24 multivitamin with minerals 1 tab PO DAILY 05/22/22 06/30/24 (Hair,Skin and Nails tablet) topiramate 200 mg tablet 200 mg PO BID 05/22/22 06/30/24 acetaminophen 325 mg tablet 325 mg PO QID PRN Pain (Scale 01/20/23 06/30/24 (Tylenol) Score 1-3) cholecalciferol (vitamin D3) 50 50 mcg PO DAILY 08/18/23 06/30/24 mcg (2,000 unit) capsule krill oil 500 mg capsule 500 mg PO DAILY 08/18/23 06/30/24 mecobalamin (vitamin B12) 5,000 5,000 mcg PO DAILY 08/18/23 06/30/24 mcg disintegrating tablet baclofen 10 mg tablet 10 mg PO TID 06/23/24 06/30/24 pantoprazole 40 mg tablet,delayed 40 mg PO DAILY 06/23/24 06/30/24 release Previous Rx's Medication Instructions Recorded cervical collar #1 ea 02/25/24 fluconazole 150 mg tablet 150 mg PO Q3D 2 doses #2 tabs 05/23/24 fluticasone propionate 50 See Rx Instructions .Route 06/15/24 mcg/actuation nasal .COMPLEX #16 grams spray,suspension cefdinir 300 mg capsule 300 mg PO BID 7 days #14 caps 06/30/24 diclofenac sodium 50 mg 50 mg PO BID PRN pain #14 tabs 06/30/24 tablet,delayed release hydrocodone 5 mg-acetaminophen 325 1 tab PO Q6H PRN pain #20 tabs 06/30/24 mg tablet ondansetron 8 mg disintegrating 8 mg PO Q6H #14 tabs 06/30/24 tablet polyethylene glycol 3350 17 17 g PO DAILY #510 grams 06/30/24 gram/dose oral powder (Miralax) tamsulosin 0.4 mg capsule (Flomax) 0.4 mg PO DAILY #30 caps 06/30/24 Allergies Allergy/AdvReac Type Severity Reaction Status Date / Time No Known Allergies Allergy Verified 06/09/24 09:01 Review of Systems 2 Narrative: Constitutional symptoms: Negative except as documented in HPI. Skin symptoms: Negative except as documented in HPI. Eye symptoms: Negative except as documented in HPI. ENMT symptoms: Negative except as documented in HPI. Respiratory symptoms: Negative except as documented in HPI. Cardiovascular symptoms: Negative except as documented in HPI. Gastrointestinal symptoms: Negative except as documented in HPI. Genitourinary symptoms: Negative except as documented in HPI. Musculoskeletal symptoms: Negative except as documented in HPI. Neurologic symptoms: Negative except as documented in HPI. Psychiatric symptoms: Negative except as documented in HPI. Endocrine symptoms: Negative except as documented in HPI. 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 S/P cervical spinal fusion x 3-- 1995, 2005, 2008 Family History Mother Diabetes Hypercholesteremia Stroke Dementia Hypertension Psychiatric illness Brother Stroke Bleeding disorder Cancer Hyperlipidemia Hypertension Psychiatric illness Grandfather Heart disease Maternal Dementia CAD (coronary artery disease) Grandmother Dementia Sister Hyperlipidemia Hypertension Psychiatric illness Denies family history of Colon cancer Ovarian cancer Clotting disorder Chronic kidney disease (CKD) Breast cancer Suicide Anesthesia complication Family history of premature coronary artery disease Lung disease Uterine cancer Thyroid disease Social History Smoking and tobacco/nicotine status: never used tobacco/nicotine Quit status (tobacco/nicotine): has quit using Year quit tobacco: quit 2019 smoked 43 years Second hand smoke exposure: No Alcohol intake: never Substance/Drug Use: never Lives independently: Yes Marital status: Single Current occupational status: disabled Special maría needs: No Physical Exam 2 Narrative: EXAM NARRATIVE: General: Alert, patient is writhing in pain Skin: Warm, dry. Head: Normocephalic, atraumatic. Neck: Supple, trachea midline. Eye: Extraocular movements are intact. Ears, nose, mouth and throat: mucosa moist. Cardiovascular: Regular, Normal peripheral perfusion. Respiratory: Lungs are clear to auscultation, respirations are non-labored, breath sounds are equal, Symmetrical chest wall expansion. Gastrointestinal: Soft, moderate right upper quadrant tenderness, Non distended Musculoskeletal: Normal ROM, no deformity. Neurological: Alert and oriented, No focal neurological deficit observed. Psychiatric: Cooperative, appropriate mood & affect. Course 2 Vital Signs: Vital signs: Vital Signs Temperature 97.6 F 06/30/24 12:09 Pulse Rate 60 06/30/24 16:07 Respiratory Rate 18 06/30/24 13:43 Blood Pressure 142/89 06/30/24 16:07 Pulse Oximetry 96 06/30/24 16:07 Oxygen Delivery Me thod Nasal Cannula 06/30/24 13:03 Oxygen Flow Rate 2 06/30/24 13:03 MDM - Abdominal Pain Medical Decision Making Differential diagnosis for patient presenting with right upper quadrant abdominal pain including but not limited to and based on the above HPI, review of systems and physical exam: Cholelithiasis or cholecystitis. Hepatitis. Diverticulitis. Constipation. Ureterolithiasis. Urinary tract infection. Appendicitis. colitis. small bowel obstruction. crohn's flare. pancreatitis. gastritis. peptic ulcer. Aortic disection. Workup including imaging and lab work replaced based on the above differential, history and exam to evaluate differential diagnosis Lab Review: Laboratory results were reviewed and interpreted by myself the emergency room physician. No leukocytosis. No anemia. No renal failure. She does have hematuria without signs of infection in her urine. CT of the abdomen pelvis with contrast: There is a 4.5 mm UVJ kidney stone with significant hydronephrosis. No other acute findings. This was reviewed and interpreted by myself the emergency room physician. I also reviewed the radiology report. I reviewed the patient's medical record. Reexamination: Patient now has no pain. After Toradol she improved greatly. I have suspicion she may have gone ahead and passed the stone as it was at the UVJ. We discussed at length red flag signs such as fever and medications. We also discussed she needs follow-up with urology. She will contact someone in [place] as she does not think her insurance will cover [place]. Assessment and plan: Ureterolithiasis ?2 doses of IV Dilaudid, IV Zofran and a dose of IV Toradol with improvement in symptoms. Patient has had no fevers. - Discharged home - Discussed findings and plan with patient. Answered any questions. - All laboratory values were reviewed and interpreted personally by myself, the ER physician - All imaging was reviewed and interpreted personally by myself, the ER physician. - Evaluation and treatment of this problem were appropriate in the emergency setting Lab Data 06/30/24 13:45 06/30/24 13:45 Labs/Radiology: Radiology Impressions Abdomen X-Ray 06/30/24 12:11 IMPRESSION: 1. No acute abdominal finding. Moderate amount retained stool in the large bowel. Abdomen/Pelvis CT 06/30/24 12:53 IMPRESSION: Moderate RIGHT hydronephrosis with RIGHT ureterectasis. Obstructing calculus at the RIGHT UVJ measuring 4.6 mm this is new from previous. Laboratory Results WBC 6.09 10^3/uL (3.29-11.43) 06/30/24 13:45 RBC 4.07 10^6/uL (3.85-5.65) 06/30/24 13:45 Hgb 12.90 g/dL (11.27-16.99) 06/30/24 13:45 Hct 37.8 % (36-47) 06/30/24 13:45 MCV 92.9 fl (85-98) 06/30/24 13:45 MCH 31.7 pg (27-33) 06/30/24 13:45 MCHC 34.1 g/dL (30-55) 06/30/24 13:45 RDW 12.7 % (12.1-15.1) 06/30/24 13:45 Plt Count 145 10^3/cmm (157-399) L 06/30/24 13:45 MPV 9.3 fL (7.4-10.4) 06/30/24 13:45 Neut % (Auto) 74.1 % 06/30/24 13:45 Lymph % (Auto) 19.9 % 06/30/24 13:45 [place] % (Auto) 4.9 % 06/30/24 13:45 Eos % (Auto) 0.5 % 06/30/24 13:45 Baso % (Auto) 0.3 % 06/30/24 13:45 Neut # (Auto) 4.51 10^3/uL (1.8-7.7) 06/30/24 13:45 Lymph # (Auto) 1.2 10^3/uL (0.8-4.8) 06/30/24 13:45 [place] # (Auto) 0.3 10^3/uL (0.2-0.9) 06/30/24 13:45 Eos # (Auto) 0.0 10^3/uL (0.0-0.8) 06/30/24 13:45 Baso # (Auto) 0.0 10^3/uL (0.0-0.1) 06/30/24 13:45 Nucleated RBC % (auto) 0 % 06/30/24 13:45 Nucleated RBCs # 0.0 /100WBC 06/30/24 13:45 Sodium 140 mmol/L (136-145) 06/30/24 13:45 Potassium 3.4 mmol/L (3.5-5.1) L 06/30/24 13:45 Chloride 106 mmol/L (98-107) 06/30/24 13:45 Carbon Dioxide 24 mmol/L (22-29) 06/30/24 13:45 Anion Gap 13.4 (5-19) 06/30/24 13:45 BUN 17 mg/dL (6-20) 06/30/24 13:45 Creatinine 1.0 mg/dL (0.5-0.9) H 06/30/24 13:45 GFR Calculation 56.7 mL/min (90-130) L 06/30/24 13:45 Glucose 120 mg/dL (65-115) H 06/30/24 13:45 Calculated Osmolality 293 mOsm/kg (285-295) 06/30/24 13:45 Lactic Acid 0.7 mmol/L (0.5-2.2) 06/30/24 13:45 Calcium 9.2 mg/dL (8.5-10.5) 06/30/24 13:45 Total Bilirubin 0.3 mg/dL (0.15-1.2) 06/30/24 13:45 AST 23 U/L (0-32) 06/30/24 13:45 ALT 16 U/L (0-33) 06/30/24 13:45 Alkaline Phosphatase 80 U/L (35-105) 06/30/24 13:45 Total Protein 6.4 g/dL (6.6-8.7) L 06/30/24 13:45 Albumin 4.3 g/dL (3.5-5.2) 06/30/24 13:45 Globulin 2.1 g/dL (1.3-4.6) 06/30/24 13:45 Lipase 40 U/L (13-60) 06/30/24 13:45 Urine Color Yellow (Yellow) 06/30/24 14:40 Urine Appearance Cloudy (CLEAR) A 06/30/24 14:40 Urine pH 7.0 (5-7) 06/30/24 14:40 Ur Specific [place] 1.057 (1.005-1.030) H 06/30/24 14:40 Urine Protein Negative (Negative) 06/30/24 14:40 Urine Glucose (UA) Negative (Normal) 06/30/24 14:40 Urine Ketones Negative (Negative) 06/30/24 14:40 Urine Blood 3+ (Negative) A 06/30/24 14:40 Urine Nitrate Negative (Negative) 06/30/24 14:40 Urine Bilirubin Negative (Negative) 06/30/24 14:40 Urine Urobilinogen 0.2 mg/dL (Negative) 06/30/24 14:40 Ur Leukocyte Esterase Negative (Negative) 06/30/24 14:40 Urine RBC >100 /hpf (0-2) H 06/30/24 14:40 Urine WBC 0-5 /hpf (0-5) 06/30/24 14:40 Ur Squamous Epith Cells 0-5 /hpf (0-5) 06/30/24 14:40 Amorphous Sediment Not Reportable 06/30/24 14:40 Urine Bacteria None seen /hpf (NONE) 06/30/24 14:40 Hyaline Casts 0.81 /lpf 06/30/24 14:40 All radiology interpretation(s) finalized by discharge Discharge Plan Discharge Patient Disposition: Home Clinical Impression: Ureterolithiasis Condition: Stable Prescriptions: New hydrocodone-acetaminophen 5-325 mg tablet 1 tab PO Q6H PRN (Reason: pain) Qty: 20 0RF ondansetron 8 mg tablet,disintegrating 8 mg PO Q6H Qty: 14 0RF Rx Instructions: Take 1/2-1 tab every 6 hours as needed for nausea and vomiting tamsulosin [Flomax] 0.4 mg capsule 0.4 mg PO DAILY Qty: 30 0RF diclofenac sodium 50 mg tablet,delayed release (DR/EC) 50 mg PO BID PRN (Reason: pain) Qty: 14 0RF polyethylene glycol 3350 [Miralax] 17 gram/dose powder 17 g PO DAILY Qty: 510 0RF Rx Instructions: Take 1 scoop daily while taking pain medications. cefdinir 300 mg capsule 300 mg PO BID 7 Days Qty: 14 0RF No Action topiramate 200 mg tablet 200 mg PO BID clonazepam 1 mg tablet 1 mg PO TID Hair,Skin and Nails Tablet 1 tab PO DAILY cholecalciferol (vitamin D3) 50 mcg (2,000 unit) capsule 50 mcg PO DAILY krill oil 500 mg capsule 500 mg PO DAILY mecobalamin (vitamin B12) 5,000 mcg tablet,disintegrating 5,000 mcg PO DAILY fluconazole 150 mg tablet 150 mg PO Q3D Qty: 2 0RF Rx Instructions: may repeat second dose 72 hrs after first dose if symptoms persist acetaminophen [Tylenol] 325 mg tablet 325 mg PO QID PRN (Reason: Pain (Scale Score 1-3)) (DME) cervical collar See Rx Instructions .Route .MEDSUPPLY Qty: 1 0RF Rx Instructions: As directed fluticasone propionate 50 mcg/actuation spray,suspension See Rx Instructions .ROUTE .COMPLEX Qty: 16 5RF Dose Instruction: instill 2 SPRAYS IN EACH NOSTRIL DAILY Rx Instructions: instill 2 SPRAYS IN EACH NOSTRIL DAILY baclofen 10 mg tablet 10 mg PO TID Rx Instructions: TAKE ONE TABLET BY MOUTH THREE TIMES DAILY pantoprazole 40 mg tablet,delayed release (DR/EC) 40 mg PO DAILY Discharge Orders: Discharge ED (Routine); Ordered 06/30/24 Ordered By: Marisol Hays Referrals: Corey Mcmullen [Referring] - 4-7 days (Please call for an appointment) Ciarra Saavedra FNP [Primary Care Provider] - Discharge Diet: Usual diet Discharge Activity: Increase activity as tolerated Patient Instructions: Kidney Stones (ED) Activity Restrictions/Additional Instructions: Call for appointment with urology. If fever (temp >100.4) develops return to the emergency room immediately, as this is an emergency. Take nausea medication prior to taking pain medications. Thank you for choosing [facility] for your healthcare needs today. Please realize this is an emergency room and that we are providing you with a medical screening exam and this may not be complete and all inclusive of all the testing and or work up that you may need to determine your ailment or severity of your illness. You have been screened and evaluated and felt safe for discharge. Health conditions do change or evolve sometimes and as such it is important that you follow up with your Primary Doctor to be re checked, 3-5 days is a general good time frame for follow up. You are always welcome to return to the ED for re assessment if your symptoms are worsening or you have new concerns Coding Level of Care Code ED Instructional Design Manager for Kojo Felder
[2024-06-30] MEDS: HYDROmorphone 1 mg/mL INJ 1 mL IVP (12:21)
--- NOTE | 2024-06-30 12:53 | CT_ITS ---
WS: [id number] CT ABDOMEN PELVIS TECHNIQUE: Contrast-enhanced CT of the abdomen and pelvis with coronal and sagittal reformatted image s. CLINICAL INFORMATION: Abdominal pain COMPARISON: CT 05/30/2024 DLP: 382.[address] scans at [facility] use at least one of these dose optimization techniques: automated e xposure control; mA and/or kV adjustment per patient size (includes targeted exams where dose is matc hed to clinical indication); or iterative reconstruction. FINDINGS: Moderate RIGHT hydronephrosis with RIGHT ureterectasis. 4.6 mm obstructing calculus at the RIGHT UVJ. This is new from previous. No other significant interval changes. Diffuse fatty infiltration of the liver. Focal fat along the ligamentum teres. Normal portal vein and splenic vein. Normal pancreas. Air-fluid level in the stomach. Adrenal glands are normal. Tiny fat-c ontaining umbilical hernia. Prior hysterectomy. CT/CT abdomen pelvis w con* [id number] IMPRESSION: Moderate RIGHT hydronephrosis with RIGHT ureterectasis. Obstructing calculus at the RIGHT UVJ measuring 4.6 mm this is new from previous.
[2024-06-30] MEDS: iohexol 350 mg/mL 500 mL Btl (per mL) IV (13:05)
--- NOTE | 2024-06-30 13:05 | PC.NURSE ---
PATIENT PLACED ON 2 L NC DUE TO 85% ON RA AFTER PAIN MEDS.
[2024-06-30] MEDS: ketorolac 30 mg/mL INJ IVP (13:43)
[2024-06-30] MEDS: HYDROmorphone 1 mg/mL INJ 1 mL 0.5 MG IVP (13:43)
[2024-06-30 13:56] LABS: Basophils % 0.3 %; Eosinophils % 0.5 %; Hematocrit 37.8 % (36-47); Lymphocytes # 1.2 10^3/uL (0.8-4.8); Lymphocytes % 19.9 %; Mean Corpuscular HGB Conc 34.1 g/dL (30-55); Mean Corpuscular Hemoglobin 31.7 pg (27-33); Mean Corpuscular Volume 92.9 fl (85-98); Mean Platelet Volume 9.3 fL (7.4-10.4); Monocytes # 0.3 10^3/uL (0.2-0.9); Monocytes % 4.9 %; Neutrophils # 4.51 10^3/uL (1.8-7.7); Neutrophils % 74.1 %; Nucleated Red Blood Cells % 0 %; Platelet Count 145 10^3/cmm (157-399); Red Blood Count 4.07 10^6/uL (3.85-5.65); Red Cell Distribution Width 12.7 % (12.1-15.1); White Blood Count 6.09 10^3/uL (3.29-11.43)
[2024-06-30 14:16] LABS: Lactic Sepsis W/Reflex 0.7 mmol/L (0.5-2.2)
[2024-06-30 14:17] LABS: Alanine Aminotransferase 16 U/L (0-33); Albumin Level 4.3 g/dL (3.5-5.2); Alkaline Phosphatase 80 U/L (35-105); Anion Gap 13.4 (5-19); Aspartate Amino Transferase 23 U/L (0-32); Blood Urea Nitrogen 17 mg/dL (6-20); Calcium 9.2 mg/dL (8.5-10.5); Carbon Dioxide 24 mmol/L (22-29); Chloride 106 mmol/L (98-107); Creatinine Clr Calc Pharmacy 49.2178; Globulin 2.1 g/dL (1.3-4.6); Glomerular Filtration Rate 56.7 mL/min (90-130); Glucose 120 mg/dL (65-115); Lipase 40 U/L (13-60); Osmolality Calculated 293 mOsm/kg (285-295); Potassium 3.4 mmol/L (3.5-5.1); Sodium 140 mmol/L (136-145); Total Bilirubin 0.3 mg/dL (0.15-1.2); Total Protein 6.4 g/dL (6.6-8.7)
[2024-06-30 15:41] LABS: Bilirubin Urine Negative (Negative); Blood Urine 3+ (Negative); Glucose Urine UA Negative (Normal); Ketones Urine Negative (Negative); Leukocyte Esterase Urine Negative (Negative); Nitrate Urine Negative (Negative); Protein Urine Negative (Negative); Urine Appearance Cloudy (CLEAR); Urine Color Yellow (Yellow); Urobilinogen Urine 0.2 mg/dL (Negative)
[2024-06-30 15:43] LABS: Bacteria Urine None Seen /hpf; Hyaline Casts Urine 0.81 /lpf; RBC Urine >100 /hpf (0-2); Squamous Epithelial Cell Urine 0-5 /hpf (0-5); WBC Urine 0-5 /hpf (0-5)
[2024-06-30 16:04] LABS: Add Urine Culture? Yes; Specific Gravity, Urine 1.057 (1.005-1.030)
== END 2024-06-30 16:08 | disposition home or self-care (01) ==
PROVIDERS: Emergency Provider Emergency Medicine; PCP Nurse Practitioner Family
DX: N13.2 Hydronephrosis with renal and ureteral calculous obstruction (principal)
CPT/HCPCS: 74019; 74177; 80053; 81001; 83605; 83690; 85025; 87040; 87086; 96374; 96375; 96376; 99285; J1171; J1885

== ENCOUNTER 2024-07-07 09:15 | Outpatient (CLI) | payer MEDICARE, MEDICAID, SELFPAY ==
--- NOTE | 2024-07-07 09:22 | FL_ITS ---
WS: [id number] Air-contrast barium enema, 07/07/2024 Clinical Data: MALIGNANT NEOPLASM OF ANUS Comparison: CT abdomen pelvis, 06/30/2020 Findings: The preliminary abdominal film demonstrated no abnormalities. The air and barium mixture was introduc ed to fill almost the entire colon. There are numerous small diverticula of the descending colon and rectosigmoid colon. The mucosal surfaces appear normal. There were no polyps or masses. No strictures could be seen. The barium was not seen below the hepatic flexure. However the air did fill the ascen ding colon and the ileocecal valve appeared normal. No reflux into the terminal ileum occurred. Poste vacuation films demonstrated no abnormalities. FL/FL barium enema w air* [id number] Impression: 1. Scattered small diverticula of the descending colon and rectosigmoid colon. 2. No polyps, masses or strictures could be seen in the colon.
== END 2024-07-07 09:17 | disposition home or self-care (01) ==
PROVIDERS: PCP Nurse Practitioner Family; Visit Provider Student in an Organized Health Care Education/Training Program
DX: C21.0 Malignant neoplasm of anus, unspecified (principal); K57.90 Diverticulosis of intestine, part unspecified, without perforation or abscess without bleeding
CPT/HCPCS: 74280

== ENCOUNTER → 2024-07-08 15:32 | Outpatient (BNVA) | payer MEDICARE, MEDICAID, SELFPAY | PROVIDERS: PCP Nurse Practitioner Family; Visit Provider Nurse Practitioner Family | DX: N20.0 Calculus of kidney (principal) | CPT/HCPCS: 81000 ==

== ENCOUNTER → 2024-07-21 10:18 | Outpatient (BNVA) | payer MEDICARE, MEDICAID, SELFPAY | PROVIDERS: PCP Nurse Practitioner Family; Visit Provider Student in an Organized Health Care Education/Training Program | DX: Z09 Encounter for follow-up examination after completed treatment for conditions other than malignant neoplasm (principal) | CPT/HCPCS: 99213 ==

== ENCOUNTER 2024-08-23 10:34 | Oncology outpatient (recurring) (ONCR) | payer MEDICARE, MEDICAID, SELFPAY ==
--- NOTE | 2024-08-24 10:32 | ONCRAD EPV_ITS ---
Radiation Oncology Established Patient Visit Patient: Dhara Garcia [id number] : 1965 Age: 58 Sex: Female Dictated by: Dr. Clementina Newberry Date of Service: 08/23/2024 Referring Physician(s) : Jaime Diagnosis: Anal cancer diagnosed in 2019 Radiotherapy to Date: Patient underwent radiation and chemotherapy in 2019 for her anal cancer Current History: Patient is a 59-year-old lady who was diagnosed with anal cancer within just a month of the country closing down for COVID in 2019. At that time she underwent chemotherapy along with the radiation. She apparently had quite a difficult time with the chemotherapy and became dehydrated and was actually in the hospital for 8 days. She also developed significant and severe reaction across the perineum which is normal for anal patients. After she completed her treatments she had moved to [place] but returned here 2 years ago to live in [place]. 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 She reports that the only time she has bowel issues which are basically diarrhea and incontinence of stool due to the diarrhea is when she has been given antibiotics. She had recently received 2 rounds of antibiotics and then was placed on a third round because the first 2 courses had caused C. difficile. She has completed all of these. She describes how sometimes she will have a bacterial infection vaginally. When questioned about the symptoms she has that makes her think she has an infection she recounts how she has a clear slimy discharge. She recounts how last spring she had good bowel movements in good control. Since his last round of antibiotics she has had chronic diarrhea and when she has diarrhea she has incontinence due to the scar tissue she has from her treatment. She also will develop yeast infections after every antibiotic treatment in Diflucan no longer treats these. She does use an over the counter Azo plus which is for yeast infections. This is the only thing that works for those. Tomorrow she is scheduled to visit with a [facility] physician in [place]. She would like to have the scar tissue released in the vaginal area. She is here today to discuss the problems that she has with her bowels. 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 [place]--self reported A-Fib ADHD Family History: Mother Diabetes Hypercholesteremia Stroke Dementia Hypertension Psychiatric illness Brother Stroke Bleeding disorder Cancer Hyperlipidemia Hypertension Psychiatric illness Grandfather Heart disease Current Medications: acetaminophen (Tylenol) 325 mg PO QID PRN baclofen 10 mg PO TID [cervical collar As directed] cholecalciferol (vitamin D3) 50 mcg PO DAILY clonazepam 1 mg PO TID diclofenac sodium 50 mg PO BID PRN fluconazole 150 mg PO Q3D 2 doses fluticasone propionate 50 mcg/actuation instill 2 SPRAYS IN EACH NOSTRIL DAILY hydrocodone- acetaminophen 5-325 mg 1 tab PO Q6H PRN krill oil 500 mg PO DAILY mecobalamin (vitamin B12) 5,000 mcg PO DAILY multivitamin with minerals (Hair,Skin and Nails tablet) 1 tab PO DAILY ondansetron 8 mg PO Q6H pantoprazole 40 mg PO DAILY polyethylene glycol 3350 (Miralax) 17 grams PO DAILY tamsulosin (Flomax) 0.4 mg PO DAILY topiramate 200 mg PO BID Allergies: No Known Allergies Allergy Current Complaints / Review of Systems: . Vital Signs: Performed on 08/23/2024 10:56 AM BMI - 22.241 kg/m2, Height - 62 in, Weight - 121.6 lbs, Temperature - 97.9 f, Pulse - 75 /min, Respiration - 17 /min, O2 Sat - 96 %, Pain - 7, Fatigue - 10 and BP - 92/ 65 mm(hg). Physical Exam: General: Alert and oriented x 3. No acute distress. HEENT: Normocephalic atraumatic. Pupils equal, sclera clear, extraocular muscles intact. LUNGS: Respiratory rate is regular nonlabored HEART: Regular rate and rhythm. ABDOMEN: Abdomen is flat. Patient has minimal adipose tissue EXTREMITIES: No peripheral edema is identified. NEUROLOGIC: Alert and orient x 3. Gait and speech within normal limits Performance Status: 100 Lab: None pending. Pathology: Imaging: See HPI Impression: History of anal cancer 4 years ago status post radiation and chemotherapy. Now with antibiotic induced diarrhea Plan: I reviewed in detail her course of treatment. We talked about all the problems that she had during her radiation. We also reviewed all of the areas where she has lived in the jobs she has had. Her toxic load burden based on her work, states she has lived in and her recent radiation and chemotherapy is actually fairly high. We did review how at this point her most recent diarrhea was actually caused by the first 2 rounds of antibiotics. She is already identified that antibiotics cause her diarrhea and incontinence. We talked at length about her continuing her pre and probiotics. I also talked at length about not using any additional antibiotics down the line and less she was running fever, had green-yellow discharge etc. She verbalized understanding of this and was in agreement. We talked about how radiation poisoning is not actually a thing or diagnosis unless you have been injected with a radioactive agent. The changes she has in her perineum are scar tissue from the cancer and the radiation. I cautioned her to be careful about having any surgery done on the perineum as there is very high chance that this would result in additional complications. I also recommended to her that she find a functional medicine physician which would be better adept at taking care of all of her issues. After spending nearly 2 hours reviewing her case and her symptoms I feel like she has a good understanding of her current clinical situation. At this point we will see her back on an as-needed basis. She will call if she should have any additional questions or concerns. Signed by: 08/24/2024 10:31:11 AM <<Signature on File>> Time spent with patient:120 Please send cc to her primary care practitioner CPT Code: CPT Code:
== END 2024-09-06 23:59 | disposition home or self-care (01) ==
LOC: ONCMED 10:36
PROVIDERS: Absent Provider Radiology Radiation Oncology; PCP Nurse Practitioner Family; Visit Provider Nurse Practitioner Family
DX: C21.0 Malignant neoplasm of anus, unspecified (principal); R91.1 Solitary pulmonary nodule; Z53.9 Procedure and treatment not carried out, unspecified reason; Z01.818 Encounter for other preprocedural examination; K59.09 Other constipation; K62.89 Other specified diseases of anus and rectum; J84.10 Pulmonary fibrosis, unspecified; Z08 Encounter for follow-up examination after completed treatment for malignant neoplasm; Z87.891 Personal history of nicotine dependence; Z92.21 Personal history of antineoplastic chemotherapy; Z92.3 Personal history of irradiation; Z85.048 Personal history of other malignant neoplasm of rectum, rectosigmoid junction, and anus; R19.7 Diarrhea, unspecified
CPT/HCPCS: 99205; 99417

== ENCOUNTER 2024-09-27 08:50 | Oncology outpatient (recurring) (ONCR) | payer MEDICARE, MEDICAID, SELFPAY | END 2024-10-07 23:59 | disposition home or self-care (01) | PROVIDERS: Absent Provider Radiology Radiation Oncology; PCP Nurse Practitioner Family; Visit Provider Nurse Practitioner Family | DX: C21.0 Malignant neoplasm of anus, unspecified (principal); R91.1 Solitary pulmonary nodule; Z53.9 Procedure and treatment not carried out, unspecified reason; Z01.818 Encounter for other preprocedural examination; K59.09 Other constipation; K62.89 Other specified diseases of anus and rectum; J84.10 Pulmonary fibrosis, unspecified; Z08 Encounter for follow-up examination after completed treatment for malignant neoplasm; Z87.891 Personal history of nicotine dependence; Z92.21 Personal history of antineoplastic chemotherapy; Z92.3 Personal history of irradiation; Z85.048 Personal history of other malignant neoplasm of rectum, rectosigmoid junction, and anus; R19.7 Diarrhea, unspecified; K52.1 Toxic gastroenteritis and colitis; T36.95XA Adverse effect of unspecified systemic antibiotic, initial encounter | CPT/HCPCS: 99214 ==

== ENCOUNTER → 2024-11-07 12:01 | Outpatient (BNVA) | payer MEDICARE, MEDICAID, SELFPAY | PROVIDERS: PCP Nurse Practitioner Family; Visit Provider Nurse Practitioner Family | DX: N28.9 Disorder of kidney and ureter, unspecified (principal); E78.5 Hyperlipidemia, unspecified; M85.80 Other specified disorders of bone density and structure, unspecified site; K58.2 Mixed irritable bowel syndrome; I49.02 Ventricular flutter | CPT/HCPCS: 80053; 80061; 82306; 82607; 83735; 84443; 85025 ==

== ENCOUNTER 2025-01-03 09:55 | Oncology outpatient (recurring) (ONCR) | payer OTHER, MEDICAID, SELFPAY ==
[2024-12-26] MEDS: iohexol 350 mg/mL 500 mL Btl (per mL) PO (16:50)
--- NOTE | 2024-12-26 17:00 | CT_ITS ---
WS: [id number] CT CHEST, ABDOMEN AND PELVIS WITH CONTRAST HISTORY: anal cancer; pulmonary nodule TECHNIQUE: Contiguous 5 mm axial imaging performed through the chest, abdomen and pelvis with IV contrast, oral contrast has been provided. Coronal and sagittal reformats chest. Coronal and sagittal reformats through the abdomen and pelvis. All CT scans at [facility] use at least one of these dose optimization techniques: automated exposure control; mA and/or kV adjustment per patient size (includes targeted exams where dose is matched to clinical indication); or iterative reconstruction. CONTRAST: Omnipaque 350; 100 mL IV. DLP: 527.78 mGy.cm COMPARISON: 06/30/2024, 05/30/[address]: Calcified granuloma RIGHT lower lobe is stable. No pulmonary mass or nodule is identified. Previously described LEFT fissural nodule is not visualized on today's exam. There is no pneumonia. No metastatic disease. Mild atherosclerosis aorta. Normal size pulmonary artery. Heart size is normal. No pericardial or pleural effusions. Subcentimeter RIGHT thyroid nodule. No mediastinal or hilar adenopathy. Abdomen CT: Normal size liver. Focal fatty sparing along the falciform ligament. No metastatic nodules are identified. Gallbladder is leaner negative. Normal pancreas. No adrenal mass. No renal obstruction. Focal scarring upper pole RIGHT kidney. Nonobstructing calcification lower pole LEFT kidney. Mild atherosclerosis aorta. No ascites or adenopathy. No GI tract obstruction. Minimal mucosal thickening at the anorectal region as seen on 05/30/2024. No change in appearance of the anus as compared to prior studies. Pelvic CT: No free fluid or adenopathy. Prior hysterectomy. No destructive bone lesions. CT/CT chest abdpel w/*[id number] IMPRESSION: 1. Benign granuloma RIGHT lower lobe. 2. No pulmonary mass or nodule identified. 3. No adenopathy in the chest, abdomen or pelvis. 4. No metastatic disease within the liver or adrenal glands. 5. No GI tract obstruction. 6. Prior hysterectomy.
[2024-12-26] MEDS: iohexol 350 mg/mL 500 mL Btl (per mL) IV (17:37)
[2025-01-03 10:15] LABS: Basophils % 0.4 %; Eosinophils # 0.2 10^3/uL (0.0-0.8); Eosinophils % 3.3 %; Hematocrit 38.9 % (36-47); Lymphocytes # 1.7 10^3/uL (0.8-4.8); Lymphocytes % 36.9 %; Mean Corpuscular HGB Conc 33.4 g/dL (30-55); Mean Corpuscular Hemoglobin 31.9 pg (27-33); Mean Corpuscular Volume 95.6 fl (85-98); Monocytes # 0.3 10^3/uL (0.2-0.9); Monocytes % 7.4 %; Neutrophils # 2.39 10^3/uL (1.8-7.7); Neutrophils % 51.8 %; Nucleated Red Blood Cells % 0 %; Platelet Count 173 10^3/cmm (157-399); Red Blood Count 4.07 10^6/uL (3.85-5.65); Red Cell Distribution Width 13.6 % (12.1-15.1); White Blood Count 4.61 10^3/uL (3.29-11.43)
[2025-01-03 10:43] LABS: Alanine Aminotransferase 11 U/L (0-33); Albumin Level 4.2 g/dL (3.5-5.2); Alkaline Phosphatase 72 U/L (35-105); Anion Gap 14.3 (5-19); Aspartate Amino Transferase 16 U/L (0-32); Blood Urea Nitrogen 15 mg/dL (8-23); Calcium 9.2 mg/dL (8.5-10.5); Carbon Dioxide 22 mmol/L (22-29); Chloride 111 mmol/L (98-107); Creatinine Clr Calc Pharmacy 54.9633; Ferritin 32 ng/mL (15-150); Globulin 2.4 g/dL (1.3-4.6); Glomerular Filtration Rate 63.9 mL/min (90-130); Glucose 52 mg/dL (65-115); Iron 105 ug/dL (37-145); Osmolality Calculated 296 mOsm/kg (285-295); Potassium 3.3 mmol/L (3.5-5.1); Sodium 144 mmol/L (136-145); Total Bilirubin 0.3 mg/dL (0.15-1.2); Total Iron Binding Capacity 308 mcg/dl; Total Protein 6.6 g/dL (6.6-8.7); Unsaturated Iron Binding 203 ug/dL (112-347)
== END 2025-01-04 23:59 | disposition home or self-care (01) ==
PROVIDERS: Absent Provider Radiology Radiation Oncology; PCP Nurse Practitioner Family; Visit Provider Internal Medicine Medical Oncology
DX: Z08 Encounter for follow-up examination after completed treatment for malignant neoplasm (principal); Z85.048 Personal history of other malignant neoplasm of rectum, rectosigmoid junction, and anus; R91.1 Solitary pulmonary nodule; G89.29 Other chronic pain; M25.561 Pain in right knee; F17.290 Nicotine dependence, other tobacco product, uncomplicated; Z92.3 Personal history of irradiation; Z92.21 Personal history of antineoplastic chemotherapy
CPT/HCPCS: 36415; 71260; 74177; 80053; 82728; 83540; 83550; 85025; 99214

== ENCOUNTER → 2025-02-21 14:03 | Outpatient (BNVA) | payer OTHER, MEDICAID, SELFPAY | PROVIDERS: PCP Nurse Practitioner Family; Visit Provider Orthopaedic Surgery | DX: M47.12 Other spondylosis with myelopathy, cervical region (principal) | CPT/HCPCS: 72050; 99213 ==

== ENCOUNTER → 2025-03-16 11:54 | Outpatient (BNVA) | payer OTHER, MEDICAID, SELFPAY | PROVIDERS: PCP Nurse Practitioner Family; Visit Provider Nurse Practitioner Family | DX: R19.7 Diarrhea, unspecified (principal); M85.80 Other specified disorders of bone density and structure, unspecified site | CPT/HCPCS: 80053; 82306; 82607; 83550; 83735; 85025 ==

== ENCOUNTER → 2025-03-21 08:25 | Outpatient (BNVA) | payer OTHER, MEDICAID, SELFPAY | PROVIDERS: PCP Nurse Practitioner Family; Visit Provider Nurse Practitioner Family | DX: N28.9 Disorder of kidney and ureter, unspecified (principal); R41.3 Other amnesia; R53.83 Other fatigue; M85.80 Other specified disorders of bone density and structure, unspecified site | CPT/HCPCS: 80053; 82306; 82607; 83550; 83735 ==

== ENCOUNTER 2025-05-24 09:44 | Outpatient (CLI) | payer OTHER, MEDICAID, SELFPAY ==
--- NOTE | 2025-05-24 09:40 | MM_ITS ---
WS: [id number] BILATERAL SCREENING DIGITAL TOMOSYNTHESIS MAMMOGRAM WITH CAD HISTORY: SCREENING COMPARISON: None available. Bilateral CC and MLO views with tomosynthesis and synthetic mammography submitted. Computer aided detection analyzed. Breast composition: There are scattered areas of fibroglandular density. No suspicious masses, microcalcifications or architectural distortion. Focal asymmetry in the upper outer quadrant RIGHT breast. No distortion or mass. Benign lymph node lateral LEFT breast. MM/MM scr BI tomosynthesis [id number] IMPRESSION: BI-RADS: 2 - Benign. FOLLOW UP: 1 Year Follow-up
== END 2025-05-24 09:45 | disposition home or self-care (01) ==
LOC: MOBLMAM 09:48
PROVIDERS: PCP Nurse Practitioner Family; Visit Provider Nurse Practitioner Family
DX: Z12.31 Encounter for screening mammogram for malignant neoplasm of breast (principal); R92.323 Mammographic fibroglandular density, bilateral breasts; N63.20 Unspecified lump in the left breast, unspecified quadrant; N64.89 Other specified disorders of breast
CPT/HCPCS: 77063; 77067

== ENCOUNTER → 2025-06-20 13:00 | Outpatient (BNVA) | payer OTHER, MEDICAID, SELFPAY | PROVIDERS: PCP Nurse Practitioner Family; Visit Provider Orthopaedic Surgery | DX: M48.02 Spinal stenosis, cervical region (principal); M47.12 Other spondylosis with myelopathy, cervical region | CPT/HCPCS: 99214 ==

== ENCOUNTER 2025-06-20 14:18 | Outpatient (CLI) | payer OTHER, MEDICAID, SELFPAY ==
[2025-06-20 16:27] LABS: Glucose Urine UA Negative (Normal); Nitrate Urine Negative (Negative); Specific Gravity, Urine 1.023 (1.005-1.030)
[2025-06-20 16:28] LABS: Hematocrit 42.7 % (36-47); Hemoglobin 14.30 g/dL (11.27-16.99); Mean Corpuscular HGB Conc 33.5 g/dL (30-55); Mean Corpuscular Hemoglobin 31.4 pg (27-33); Mean Corpuscular Volume 93.8 fl (85-98); Nucleated Red Blood Cells % 0 %; Platelet Count 200 10^3/cmm (157-399); Red Blood Count 4.55 10^6/uL (3.85-5.65); White Blood Count 4.60 10^3/uL (3.29-11.43)
[2025-06-20 16:29] LABS: Add Urine Microscopic? YES
[2025-06-20 17:39] LABS: Alanine Aminotransferase 13 U/L (0-33); Albumin Level 4.7 g/dL (3.5-5.2); Alkaline Phosphatase 80 U/L (35-105); Anion Gap 17.2 (5-19); Aspartate Amino Transferase 16 U/L (0-32); Blood Urea Nitrogen 23 mg/dL (8-23); Calcium 9.6 mg/dL (8.5-10.5); Carbon Dioxide 21 mmol/L (22-29); Chloride 110 mmol/L (98-107); Globulin 2.6 g/dL (1.3-4.6); Glucose 94 mg/dL (65-115); Osmolality Calculated 301 mOsm/kg (285-295); Potassium 4.2 mmol/L (3.5-5.1); Sodium 144 mmol/L (136-145); Total Protein 7.3 g/dL (6.6-8.7)
== END 2025-06-20 14:19 | disposition home or self-care (01) ==
LOC: LAB 14:19
PROVIDERS: PCP Nurse Practitioner Family; Visit Provider Orthopaedic Surgery
DX: M47.12 Other spondylosis with myelopathy, cervical region (principal)
CPT/HCPCS: 36415; 80053; 81001; 85025

== ENCOUNTER 2025-07-04 11:45 | Oncology outpatient (recurring) (ONCR) | payer OTHER, MEDICAID, SELFPAY ==
--- NOTE | 2025-06-27 12:00 | CTR_ITS ---
PROCEDURE INFORMATION: Exam: CT Chest With Contrast; Diagnostic Exam date and time: 06/27/2025 12:17 PM Age: 59 years old Clinical indication: Condition or disease; Prior surgery; Surgery date: 6+ months; Surgery type: Hyst, neck x 3; Follow up anal cancer, , pulmonary nodule, unable to gain weight. TECHNIQUE: Imaging protocol: Diagnostic computed tomography of the chest with contrast. Radiation optimization: All CT scans at this facility use at least one of these dose optimization techniques: automated exposure control; mA and/or kV adjustment per patient size (includes targeted exams where dose is matched to clinical indication); or iterative reconstruction. Contrast material: OMNI 350; Contrast volume: 100 ml; Contrast route: INTRAVENOUS (IV); COMPARISON: CT chest abdpel w/*[id number] 05/30/2024 9:20 AM RADIATION DOSE METRICS: Total DLP (mGy-cm): 458.5 FINDINGS: Thyroid: There is a single small subcentimeter inferior right thyroid cyst or nodule. Lungs: Unremarkable. No consolidation. No masses. Pleural spaces: There is a calcified pleural nodule within the right lower lobe, stable. Heart: Unremarkable. No cardiomegaly. No pericardial effusion. Lymph nodes: Unremarkable. No enlarged lymph nodes. Vasculature: Unremarkable. No aortic aneurysm. Bones/joints: There is no acute osseous abnormality identified. There is no lytic or blastic lesions seen. Soft tissues: Unremarkable. COMMENTS: Consistent with the [employer]'s Incidental Findings Committee white paper (J Am Osmani Radiol 2015): In patients aged 35 years and older with an incidental thyroid nodule equal to or greater than 1.[address], MRI or extrathyroidal US, further evaluation with dedicated thyroid US is recommended for patients with normal life expectancy and without comorbidities. For smaller nodules without suspicious features, no further evaluation or follow up is recommended. PROCEDURE INFORMATION: Exam: CT Abdomen And Pelvis With Contrast Exam date and time: 06/27/2025 12:17 PM Age: 59 years old Clinical indication: Condition or disease; Prior surgery; Surgery date: 6+ months; Surgery type: Hyst, neck x 3; Follow up anal cancer, , pulmonary nodule, unable to gain weight. TECHNIQUE: Imaging protocol: Computed tomography of the abdomen and pelvis with contrast. Radiation optimization: All CT scans at this facility use at least one of these dose optimization techniques: automated exposure control; mA and/or kV adjustment per patient size (includes targeted exams where dose is matched to clinical indication); or iterative reconstruction. Contrast material: OMNI 350; Contrast volume: 100 ml; Contrast route: INTRAVENOUS (IV); COMPARISON: CT abdomen pelvis w con* [id number] 06/30/2024 12:58 PM RADIATION DOSE METRICS: Total DLP (mGy-cm): 458.5 FINDINGS: Liver: There is focal fatty replacement adjacent to the fissure for the falciform ligament. Gallbladder and biliary ducts: Normal. No calcified stones. No ductal dilation. Pancreas: Normal. No ductal dilation. Spleen: Normal. No splenomegaly. Adrenal glands: Normal. No mass. Kidneys and ureters: There is a 2 mm nonobstructing calculus in the inferior pole of the left kidney. Stomach and bowel: There is a moderate amount of stool throughout the colon. Luminal contrast has traversed to the ascending colon. Appendix: No evidence of appendicitis. Intraperitoneal space: Unremarkable. No free air. No significant fluid collection. Vasculature: The abdominal aorta is normal in caliber with mild marginal atherosclerotic plaque. Lymph nodes: Unremarkable. No enlarged lymph nodes. Urinary bladder: Unremarkable as visualized. Reproductive: The patient is status post hysterectomy. Bones/joints: There is no acute osseous abnormality seen. Mild degenerative changes are present throughout the lumbar spine. There is no lytic or blastic lesion present. Soft tissues: Unremarkable. CT/CT chest abdpel w/*[id number] IMPRESSION: No acute process or evidence of metastatic disease. IMPRESSION: 1. No acute process or evidence of metastatic disease. 2. Nonobstructing left nephrolithiasis
[2025-06-27] MEDS: iohexol 350 mg/mL 500 mL Btl (per mL) PO (12:18)
[2025-06-27] MEDS: iohexol 350 mg/mL 500 mL Btl (per mL) IV (12:20)
[2025-07-04 10:18] LABS: Hematocrit 41.3 % (36-47); Hemoglobin 13.90 g/dL (11.27-16.99); Mean Corpuscular HGB Conc 33.7 g/dL (30-55); Mean Corpuscular Hemoglobin 31.2 pg (27-33); Mean Corpuscular Volume 92.8 fl (85-98); Nucleated Red Blood Cells % 0 %; Platelet Count 151 10^3/cmm (157-399); Red Blood Count 4.45 10^6/uL (3.85-5.65); White Blood Count 3.79 10^3/uL (3.29-11.43)
[2025-07-04 10:35] LABS: Alanine Aminotransferase 12 U/L (0-33); Albumin Level 4.3 g/dL (3.5-5.2); Alkaline Phosphatase 86 U/L (35-105); Anion Gap 17.9 (5-19); Aspartate Amino Transferase 18 U/L (0-32); Blood Urea Nitrogen 19 mg/dL (8-23); Calcium 9.4 mg/dL (8.5-10.5); Carbon Dioxide 19 mmol/L (22-29); Chloride 109 mmol/L (98-107); Cholesterol 316 mg/dL (0-200); Globulin 2.3 g/dL (1.3-4.6); Glucose 89 mg/dL (65-115); HDL Cholesterol 58 mg/dL (60-100); Osmolality Calculated 296 mOsm/kg (285-295); Potassium 3.9 mmol/L (3.5-5.1); Sodium 142 mmol/L (136-145); Total Protein 6.6 g/dL (6.6-8.7); Triglycerides 219 mg/dL (0-150)
== END 2025-07-07 23:59 | disposition home or self-care (01) ==
PROVIDERS: PCP Nurse Practitioner Family; Visit Provider Internal Medicine Medical Oncology
DX: Z08 Encounter for follow-up examination after completed treatment for malignant neoplasm; Z85.048 Personal history of other malignant neoplasm of rectum, rectosigmoid junction, and anus; R19.7 Diarrhea, unspecified; E78.5 Hyperlipidemia, unspecified; N20.0 Calculus of kidney; R21 Rash and other nonspecific skin eruption; R63.4 Abnormal weight loss; Z68.1 Body mass index [BMI] 19.9 or less, adult; Z87.891 Personal history of nicotine dependence; Z92.21 Personal history of antineoplastic chemotherapy; Z92.3 Personal history of irradiation; Z53.9 Procedure and treatment not carried out, unspecified reason
CPT/HCPCS: 36415; 71260; 74177; 80053; 80061; 85025; 99214

== ENCOUNTER 2025-07-19 10:16 | Inpatient (IN) | payer MEDICARE, MEDICAID, SELFPAY ==
[2025-07-19] VITALS (20 sets, daily range): BP systolic 91–141; BP diastolic 58–85; PULSE 60–114; RESP 13–23; TEMP 36.2–36.7; O2SAT 91–99; BMI 19.3; BMI 21.1
--- NOTE | 2025-07-19 06:36 | W.PM.OPSUD ---
Surgery/Procedure H&P Update DATE OF PROCEDURE: July 19, 2025 DATE H&P PERFORMED: 06/20/25 H&P UPDATE INFORMATION: I have reviewed H&P completed within last 30 days, I have examined patient prior to procedure and No changes to prior documentation PLANNED PROCEDURE: Operation Date: 07/19/25 07:00 Proposed Procedures p Cervical Posterior Fusion(Not Applicable) - Rodolfo Holcomb DO s Cervical Decompression(Not Applicable) - Rodolfo Holcomb DO
--- NOTE | 2025-07-19 06:48 | ANES.PREANE2 ---
Pre-Anesthetic Assessment Height/Weight: Height 1.57 m Weight 48.081 kg Temp Pulse Resp BP Pulse Ox O2 Del Method 98.0 F 60 18 93/66 99 Room Air 07/19/25 06:30 07/19/25 06:30 07/19/25 06:30 07/19/25 06:30 07/19/25 06:30 07/19/25 06:30 Operation Date: 07/19/25 07:00 Proposed Procedures p Cervical Posterior Fusion(Not Applicable) - Rodolfo Holcomb DO s Cervical Decompression(Not Applicable) - Rodolfo Holcomb DO Familial anesthetic complications: None Was Beta Linda taken within 24 hours: N/A Was Clonidine taken within 24 hours: N/A Last intake: Intake Last Liquid Date 07/18/25 Last Liquid Time 20:00 Last Solid Date 07/18/25 Last Solid Time 20:00 Social No alcohol and No tobacco Exam alert, oriented x 3, clear to auscultation bilaterally and regular rate & rhythm Airway Mallampati: Class II Dentition: chipped CV/HEM Arrythmia (flutter) MOderate aortic stenosis, EF 72% 1st degree heart block GI Gastroesophageal Reflux Disease Metabolic Hyperlipidemia Anesthetic Plan ASA status: 3 Anesthesia: General Risk of > 500 ml blood loss (7ml/kg in children): No Medications/Allergies Home Medications ?Medication ?Instructions ?Recorded ?Confirmed ?Last Taken ?Type clonazepam 1 mg tablet 1 mg PO TID 05/22/22 07/19/25 07/19/25 History topiramate 200 mg tablet 200 mg PO BID 05/22/22 07/19/25 07/19/25 History acetaminophen 325 mg tablet 325 mg PO QID PRN Pain (Scale 01/20/23 07/13/25 06/30/24 History (Tylenol) Score 1-3) cholecalciferol (vitamin D3) 50 50 mcg PO DAILY 08/18/23 07/13/25 06/30/24 History mcg (2,000 unit) capsule krill oil 500 mg capsule 500 mg PO DAILY 08/18/23 07/13/25 06/24/24 History dicyclomine 10 mg capsule 10 mg PO TID PRN abdominal pain 04/05/25 07/13/25 07/12/25 Rx #30 caps fluticasone propionate 50 2 spray intranasal DAILY 07/13/25 07/13/25 Unknown History mcg/actuation nasal spray,suspension pantoprazole 40 mg tablet,delayed 40 mg PO DAILY 07/13/25 07/13/25 Unknown History release tizanidine 4 mg tablet 4 mg PO Q8H 07/13/25 07/13/25 07/13/25 History hard shell cervical collar #1 ea 07/17/25 Unknown Rx Allergies Allergy/AdvReac Type Severity Reaction Status Date / Time red dye Allergy Intermediate Unknown Verified 07/11/25 14:00 Current Medications Generic Name Dose Route Start Last Admin Trade Name Scoobyq PRN Reason Stop Dose Admin Sodium Chloride 1,000 mls @ 30 mls/hr 07/19/25 06:00 07/19/25 06:27 Sodium Chloride 0.9% IV 07/20/25 05:59 30 mls/hr .Q24H MELI Administration PFSH Anesthesia Medical History Enrolled in chronic care management Hyperlipidemia Chronic anxiety Chronic migraine Osteoporosis Hiatal hernia Anal cancer Treated in 2019 with chemoradiation GERD (gastroesophageal reflux disease) 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 S/P cervical spinal fusion x 3-- 1995, 2005, 2008 Family History Mother Diabetes Hypercholesteremia Stroke Dementia Hypertension Psychiatric illness Brother Stroke Bleeding disorder Cancer Hyperlipidemia Hypertension Psychiatric illness Grandfather Heart disease Maternal Dementia CAD (coronary artery disease) Grandmother Dementia Sister Hyperlipidemia Hypertension Psychiatric illness Denies family history of Colon cancer Ovarian cancer Clotting disorder Chronic kidney disease (CKD) Breast cancer Suicide Anesthesia complication Family history of premature coronary artery disease Lung disease Uterine cancer Thyroid disease Social History Smoking and tobacco/nicotine status: former use of tobacco/nicotine Quit status (tobacco/nicotine): has quit using Year quit tobacco: quit 2018 smoked 43 years Second hand smoke exposure: No Alcohol intake: never Substance/Drug Use: never Lives independently: Yes Marital status: Single Current occupational status: disabled Special maría needs: No Data Anesthesia Cardiac Studies: Echocardiogram 10/16/22 Cardiac Event Monitor 09/17/22
[2025-07-19] MEDS: ceFAZolin 2,000 mg SDV 2000 MG IVP ×3 (07:30→23:24)
--- NOTE | 2025-07-19 07:55 | SUR.OPER ---
attempted to call life partner to notify him of surgical start. no answer.
[2025-07-19] MEDS: tobramycin 40 mg/mL SDV 2mL 160 MG XX (08:29)
[2025-07-19] MEDS: lidocaine-epi 1% 20 mL INJ INJECTION (08:30)
--- NOTE | 2025-07-19 10:38 | PM.OP ---
Operative Report Date of procedure: July 19, 2025 Pre-op diagnosis: Cervical stenosis with myelopathy Post-op diagnosis: same Procedure done: 1. C2-T2 posterior cervical fusion 2. C2-T2 instrumentation 3. C3/4 laminectomy with partial facetectomies 4. use of computer navigation/Serotactic for spine 5. use of autograft from same incision 6. Use of allograft 7. Removal of deep hardware from posterior cervical spine Surgeon: Rodolfo Holcomb DO Estimated blood loss (mL): 150 Procedure: 1. C2-T2 posterior cervical fusion 2. C2-T2 instrumentation 3. C3/4 laminectomy with partial facetectomies 4. use of computer navigation/Serotactic for spine 5. use of autograft from same incision 6. Use of allograft 7. Removal of deep hardware from posterior cervical spine Patient brought to the operative suite after undergoing anesthesia was placed in the prone position. Neuro monitoring was attached to the patient is throughout the entire case. Patient was placed so that was no areas impingement. Patient was then prepped and draped normal sterile fashion. Skin incision is made from C2 down to T2. Cervical fascia was identified. Retractors were placed. Subperiosteal dissection was made out from the spinous process of C2 out to the lateral masses of C2. Down to C3, C4, C5, C6, C7, and out to the transverse processes of T1 and T2. This was done bilaterally. Attention was brought to removing the screws. The screws were in C4-C7. Screws did not look like they were lined up with the other screws. They were going to be putting in. So I remove them and the heads were also stiff I could not rotate them to help them aligned. Next attention was brought to placing a spinous process clamp on to T3. This was done in order to facilitate using the computer navigation. The C-arm was brought in and spun around patient and the information from the C-arm was loaded in the computer to facilitate placing screws using computer navigation. Next attention was brought to placing screws. Attention was first brought to doing the pedicle screws at T1-T2. This was done by using high-speed bur. Followed by using the navigated drill followed by pedicle feeler followed by placement of the screws. 28 mm screws were used at each level. This process was done at T1 and T2 bilaterally. Once pedicle screws are completed navigation was then used on the C2 screws. The C2 pars screw was placed. This was done using the high-speed bur followed by the drill followed by placement of the screw. A 20 mm screw was placed bilaterally. The technique was used bilaterally. The screw was placed navigated. Lateral mass screws were then placed at C3-C4-C5 and C6 bilaterally. C7 was skipped. The body mass screws were done by using high-speed bur followed by a drill set at 12 mm. Followed by pedicle feeler followed by placement of the screw. C4 screw on the right had pulled out when he put the bassam and so I put a screw in C3 on the right. On the left side I skip C3. Bassam was placed from C2 down to T2 into the tulips and then the screws were locked in position this was done bilaterally. And torqued was used. Next attention was brought to the C3-4 level. The ligamentum flavum was taken down between the interlaminar space. Was seen and lumbar space was opened up was used to help undermine and get the ligamentum flavum taken down from lateral mass lateral mass. High-speed bur was then used to take down the medial aspect of the facet joint as well as the lamina. Then the #2 Kerrison was used to finish off the gutter that was performed and also take down the medial aspect of the facet joint of C3 and C4. This was done bilaterally. The lamina was then elevated up and the facet joints were cleaned up with a Kerrison rongeur and curved curette was used to ensure that the nerve roots were freed up. Once decompression was done at each level. Attention was then brought to decorticating the lateral masses from C2-C6. As well as the lamina and transverse processes of T1 and T2. This was done bilaterally. Then the autograft from the lamina of the shoulder was packed into the lateral gutters along with ostial amp bone graft. Vancomycin powder and deep drain was placed in the wound. Wound was then closed in layered fashion with 0 Vicryl 2-0 Vicryl and Monocryl suture. Sterile dressings were applied patient was transferred to the PACU in stable condition.
--- NOTE | 2025-07-19 11:05 | ANE.PACU2 ---
Inpatient post-anesthesia follow up: Airway intact: Yes Vital signs: Temperature 97.2 F Pulse Rate 97 Respiratory Rate 18 Blood Pressure 141/85 Pulse Oximetry 94 Oxygen Delivery Me thod Room Air Oxygen Flow Rate 10 Fraction of Inspir ed Oxygen Hydration adequate: Yes Nausea and vomiting: No Pain level: 1 Mental status: Baseline
--- NOTE | 2025-07-19 11:27 | PC.NURSE ---
1121 - accepted into room 261 with KIRAN Faye at side - BP 128/76 pulse 107 - 0291% temp 97.1
--- OUTSIDE RECORDS SUMMARY | 2025-07-19 14:10 | XMS_ITS | Patient Health Record ---
Author Organization [facility] Address [address] [place] [address] Support Name Relationship Address Phone Darrel Marques Emergency Contact [address] [address] Dhara Garcia Guarantor Unknown [phone] Allergies No Known Allergies Reason For Referral No Information Medications Medication SIG (Take, Route, Frequency, Duration) Notes Start Date End Date Status Topamax 200 MG Tablet 1 tablet Orally tw ice a day Active Diclofenac 35 MG Capsule 1 capsule as ne eded Orally Three times a day Active Omeprazole 20 MG Capsule Delayed Release 1 capsule 30 minutes before morning meal Orally Once a day Active Ibkrhzng-Hjckykhrx-UC [id number] Suspension 4 drops into affected ear Otic Three times a day; Duration: 7 days 04/17/2022 Active clonazePAM 1 MG Tablet 1 tablet Orally t hree times a day Active Social History Tobacco Use: Social History Observation Description Date Details (start date - stop date) Former Smoker NA - NA Social History Depression Screening Social Info Question Answer Notes PHQ-9 Little interest or pleasure in doing thin gs Not at all Feeling down, depressed, or hopeless Not at all Trouble falling or staying asleep, or sleeping t oo much Not at all Feeling tired or having little energy Not at all Poor appetite or overeating Not at all Feeling bad about yourself, or that you are a failure, or have let yourself or your family down Not at all Trouble concentrating on thi ngs, such as reading the newspaper or watching television Not at all Moving or speaking so slowly that other people could have noticed. Or the opposite ? being so fidgety or restless that you have been moving around a lot more than usual Not at all Thoughts that you would be b rosi off , or of hurting yourself in some way Not at all Total Score 0 Drugs/Alcohol: Social Info Question Answer Notes Alcohol Screen (Audit-C) Did you have a drink containing alcohol in the past year? No Points 0 Interpretation Negative Tobacco Use: Social Info Question Answer Notes xTobacco Use/Smoking Are you a former smoker Section Notes: 04/17/22 PHQ9 Plan Of Treatment No Information Insurance Providers Payer Name Payer Address Payer Phone Subscriber Number Group Number Insured Name Patient Relationship to Insured Coverage Start Date Coverage End Date [place] Medicare [address] [place] [address] [id number] Dhara Garcia Self - patient is the insured [place] Medicaid [address] [place] [address] [id number] Dhara Garcia Self - patient is the insured Medical (General) History Medical History History ICD Code anxiety Panic attacks Surgical History Surgery Date(Month/Year) neck surgery x 3 history of colon cancer
--- OUTSIDE RECORDS SUMMARY | 2025-07-19 14:10 | XMS_ITS | Clinical Summary ---
Author Organization [facility] Address [address] Valen: Epic Prelude ADT [address] [place] [address] Care Team Providers Care Core Layer Machine Operator Name Role Phone Harlye Murphy Primary Care Provider Unavailable Allergies No known active allergies Medications baclofen (LIORESAL) 10 mg tablet Take 1 Tablet by mouth 3 times daily. 4 Active clonazePAM (KlonoPIN) 1 mg tablet take one tablet by mouth three times daily as needed for anxiety 4 Active fluconazole (DIFLUCAN) 150 mg tablet TAKE ONE TABLET BY MOUTH now, THEN MAY REPEAT one TABLET in 3 days if symptoms persist 4 Active famotidine (PEPCID) 40 mg tabletIndication s:Gastroesophage al reflux disease, unspecified whether esophagitis present,Bloating Take 1 Tablet (40 mg) by mouth 2 times daily. 60 Tablet 4 4 Active topiramate (TOPAMAX) 200 mg tablet Take 1 Tablet by mouth 2 times daily. Active pantoprazole (PROTONIX) 40 mg Tablet, Delayed Release (E.C.) Take 1 Tablet by mouth daily. 4 Active vit,calc76/iron/ folic (PNV 29-1 ORAL) Take by mouth. Activ e KRILL OIL ORAL Take by mouth. Active CALCIUM CARBONATE-VITAMI N D3 ORAL Take by mouth. Activ e Saccharomyces boulardii (FLORASTOR) 250 mg Capsule Take by mouth. Acti ve conjugated estrogens (Premarin) 0.625 mg/gram vaginal creamIndications :Vaginal atrophy Insert 0.5 Grams vaginally daily at bedtime. Use daily at bedtime for one week, then use twice weekly at bedtime. 30 Gram 1 4 Active clobetasoL (TEMOVATE) 0.05 % Cream Apply 1 gram daily at bedtime for 12 weeks. 30 Gram 2 4 Active Active Problems Problem Noted Date Diagnosed Date History of anal cancer 07/27/2024 Gastroesophageal reflux disease 07/27/2024 Cervical strain, acute 08/17/2012 Sleep apnea 05/15/2012 Insomnia 05/15/2012 anxiety 05/15/2012 Osteoporosis 05/15/2012 PTSD (post-traumatic stress disorder) 05/15/2012 Bipolar 1 disorder 05/15/2012 Chronic pain disorder 05/15/2012 Hyperlipidemia 05/15/2012 Fibromyalgia 05/15/2012 Encounters Date Type Department Care Team Description 07/05/2025 External Device Data [facility]STRACTION Provider, Abstract 07/04/2025 External Device Data [facility] Provider, Abstract from Last 3 Months Immunizations Immunization Administration Dates Next Due (ADACEL/BOOSTRIX)(10 YR UP) TDAP VACCINE, 0.5ML, IM 02/15/2012 Family History Medical History Relation Name Comments Cancer Brother Colon Cancer Brother Relation Name Status Comments Brother Social History Tobacco Use Types Packs/Day Years Used Date Smoking Tobacco: Former Cigarettes Smokeless Tobacco: Never Tobacco Cessation:Counseling Given: Not Answered Alcohol Use Standard Drinks/Week Comments No 0 (1 standard drink = 0.6 oz pur e alcohol) Feeling Safe Answer Date Recorded Are you in a relationship wi th someone who hurts you emotionally and/or physically? No 08/03/2024 Comments Unknown Sex and Gender Information Value Date Recorded Sex Assigned at Not on file Legal Sex Female 10:59 AM SEAFOOD SPECIALIST Gender Identity Not on file Sexual Orientation Not on file Last Filed Vital Signs Vital Sign Reading Time Taken Comments Blood Pressure 100/72 08/24/2024 1:05 PM SEAFOOD SPECIALIST Pulse 65 08/03/2024 2:00 PM SEAFOOD SPECIALIST Temperature - - Respiratory Rate 16 08/03/2024 2:00 PM SEAFOOD SPECIALIST Oxygen Saturation 96% 08/03/2024 2:00 PM SEAFOOD SPECIALIST Inhaled Oxygen Concentration - - Weight 55.8 kg (123 lb) 08/24/2024 1:05 PM SEAFOOD SPECIALIST Height 157.5 cm (5' 2 ) 08/24/2024 1:05 PM SEAFOOD SPECIALIST Body Mass Index 22.5 08/24/2024 1:05 PM SEAFOOD SPECIALIST Plan of Treatment Upcoming Encounters Date Type Department Care Team (Late st Contact Info) Description 11/10/2025 3:00 PM SEAFOOD SPECIALIST Telephone Check Up [facility] [address] [place] [address] Jazmyn Mcmullen PA-C [address] [place] [address] Health Maintenance Due Date Last Done Comments BREAST CANCER SCREENING 2004 ZOSTER VACCINE (1 of 2) 2014 DTAP/TDAP/TD VACCINES (2 - T d or Tdap) 02/14/2022 02/15/2012 INFLUENZA VACCINE (#1) 2025 09/07/2018 RSV VACCINE (60+ or ) (1 - 1-dose 75+ series) 2039 HEPATITIS B VACCINES Aged Out No long er eligible based on patient's age to complete this topic Insurance MEDICAID [facility] DUAL COMPLETE PPO [facility] [id number] Advance Directives For more information, please contact: [phone] * Full Code (Latest Code Status on File) Date Activated Date Inactivated Comments 08/03/2024 12:57 PM 08/03/2024 4:57 PM Care Teams Core Layer Machine Operator Relationship Specialty Start Date End Date Harley Murphy PA NO ADDRESS ON FILE PCP - General Physician Alarm Adjuster 11/26/11
--- OUTSIDE RECORDS SUMMARY | 2025-07-19 14:10 | XMS_ITS | Patient Health Record ---
Author Organization [facility] Shruthi hernandez Billing Info Address [address] [place] [address] [place] [address] Care Team Providers Care Cloth Weaver Name Role Phone WILL LILLY Primary Care Provider UnavailMARTHA Quintanilla Unavailable [phone] DR LAMONT PERRY MD Unavailable Unavailabl e Allergies No Known Allergies Reason For Referral No Information Medications Medication SIG (Take, Route, Fr equency, Duration) Notes Start Date End Date Status Multi For Her - as directed Orally Active Flonase Active Baclofen 10 MG 1 tablet as needed O rally Twice a day Active Clonazepam 1 MG 1 tablet Orally Once a day Active Dicyclomine HCl 20 MG 1 tablet Orally Th ree times a day for 30 day(s) Active Omeprazole 40 MG 1 capsule 30 minutes before morning meal Orally Once a day for 30 day(s) Active Topiramate 200 MG 1 tablet Orally Twic e a day for 30 day(s) Active Meloxicam 15 MG 1 tablet Orally Once a day for 30 day(s) Active Metamucil 28 % 1 packet with 8 ounc es of liquid as needed Orally Once Daily for 30 days 05/22/2021 Active Social History Tobacco Use: Social History Observation Description Date Details (start date - stop date) Never Smoker NA - NA Tobacco Status: Question Answer Notes Patient is a never smoker Plan Of Treatment No Information Insurance Providers Payer Name Payer Address Payer Phone Subscriber Number Group Number Insured Name Patient Relationship to Insured Coverage Start Date Coverage End Date [facility] CLAIMS [address] [address] [place], [place] [id number] Dhara Garcia Self - patient is the insured MEDICAID [place] [address] [place], [place] [id number] [phone] [id number] Dhara Garcia Self - patient is the insured Medical (General) History Medical History History ICD Code Migraine headaches Osteoporosis nerve pain Surgical History Surgery Date(Month/Year) spinal fusion carpal tunnel release hysterectomy Hospitalization History Reason Date(Month/Year) cancer
[2025-07-19] MEDS: morphine 4 mg/mL SDV 1 mL 2 MG IVP (17:03)
[2025-07-19] MEDS: oxyCODONE-APAP 5-325 mg Tablet 1 TAB PO (20:32)
[2025-07-20] VITALS: BP 90/60; PULSE 80; RESP 16; TEMP 37; O2SAT 96
--- NOTE | 2025-07-20 | XR_ITS ---
WS: [id number] Exam: XR cervical spine 3V* [id number] Date/Time of Exam: 07/20/2025 12:00 AM Reason For Exam: OR PICS DLP: AP and lateral C-arm images of the cervical spine are submitted. Images were obtained for intraoperative visualization purposes.
[2025-07-20 04:00] VITALS: BP 110/71; PULSE 76; RESP 16; TEMP 36.7; O2SAT 96
[2025-07-20 08:06] VITALS: RESP 16; O2SAT 96
[2025-07-20] MEDS: ceFAZolin 2,000 mg SDV 2000 MG IVP (08:06)
[2025-07-20] MEDS: oxyCODONE-APAP 5-325 mg Tablet 1 TAB PO (08:06)
[2025-07-20 08:20] VITALS: BP 99/64; PULSE 69; RESP 17; TEMP 36.7; O2SAT 95
--- NOTE | 2025-07-20 10:01 | PC.CHAP ---
Pastoral Care Encounter/Spiritual Assessment Type of Contact [] Declined pressurization mechanic visit [] Patient/Family/Request visit [] Outpatient visit [] Follow-up visit [] Physician referral [] Code/Alert [x] Routine visit [] Staff referral [] Actively dying [] Patient sleeping [x] Family support [] [] Out of room [] Palliative care [] [] Receiving care in room [] Pre-surgical visit [] Trauma [] Long length of stay [] ICU visit [] Other: Relational/Emotional Strength [x] Patient feels connected with others/family/visitors/staff [] Distress [] Loneliness/isolation [] Abandonment Spirituality of Patient [x] Person of Bisi [] Attends Adventism of their Bisi [x] Believes in Prayer [] Reads Bible or Protestant materials [] There are Spiritual issues to be addressed Convertible Sofa Bedspring Tester Interventions [x] Prayer [x] Active listening [] Non-anxious presence [x] Spiritual/emotional support [] Crisis/trauma care [] Spiritual counseling [] Bereavement support [] Provided bereavement packet [] Provided Bible/devotional materials [] Provided toy/stuffed animal, coloring book to patient or family member [] Provided Communion [] Anointing/Mobile [] Salvation [x] Completed spiritual assessment [] Other: Impact on Illness or Injury [] Angry [] Fearful [] Anxious [] Often cries [] Exhaustion [] Unable to work [] Unable to attend baptism [] Unable to walk/stand [] Unable to read [] Unable to drive [] Unable to eat/drink [] Unable to sleep [] Unable to be with family [] Patient intubated [] Other: Summary Time spent with patient 5 min
--- NOTE | 2025-07-20 10:51 | PC.NURSE ---
HEMOVAC removed by this nurse, patient tolerated well. IV and levin removed, patient also tolerated this well. Discharge paperwork gone over with patient and SO, all questions answered. Patient ambulated off the unit with this nurse.
--- NOTE | 2025-07-21 10:08 | P.DS_ITS ---
Discharge Providers Date of Admission: 07/19/25 10:16 Date of Discharge: July 20, 2025 Attending Provider at Admission: Rodolfo Holcomb DO Attending Provider at Discharge: Rodolfo Holcomb DO Primary Care Provider: ALFRED Polanco Reason for Visit Reason for Visit: M47.12 Physical Exam Narrative: Patient doing well sitting up eating. Urinary Catheter Management: Vasquez: Cath Placed During This Visit: yes Reason for Continuing Indwelling Catheter: Other Urinary Catheter Date of Insertion: 07/19/25 Urinary Catheter Time of Insertion: 07:30 Discharge Data Studies Completed and Pending Pending at discharge Category Date Time Status XR cervical spine 3V* [id number] Routine Exams 07/20/25 00:00 Taken Laboratory Results Blood Type A Positive 07/19/25 06:10 Rho(D) Type Rh positive 07/19/25 06:10 Antibody Screen Negative 07/19/25 06:10 Vitals Last Vital Signs Temp 98.0 F 07/20/25 08:20 Pulse 69 07/20/25 08:20 Resp 17 07/20/25 08:20 BP 99/64 07/20/25 08:20 Pulse Ox 95 07/20/25 08:20 O2 Del Method Room Air 07/20/25 04:00 O2 Flow Rate 10 07/19/25 10:53 Discharge Plan Discharge Patient Disposition: Home Condition: Stable Prescriptions: New oxycodone 5 mg tablet 5 mg PO Q4H PRN (Reason: pain) 7 Days Qty: 42 0RF Continued topiramate 200 mg tablet 200 mg PO BID cholecalciferol (vitamin D3) 50 mcg (2,000 unit) capsule 50 mcg PO DAILY krill oil 500 mg capsule 500 mg PO DAILY acetaminophen [Tylenol] 325 mg tablet 325 mg PO QID PRN (Reason: Pain (Scale Score 1-3)) dicyclomine 10 mg capsule 10 mg PO TID PRN (Reason: abdominal pain) Qty: 30 5RF (DME) hard shell cervical collar Adult XS See Rx Instructions .Route .MEDSUPPLY Qty: 1 0RF Rx Instructions: As directed tizanidine 4 mg tablet 4 mg PO Q8H Rx Instructions: TAKE 1 TABLET BY MOUTH EVERY 8 HOURS NEEDED FOR MUSCLE SPASM pantoprazole 40 mg tablet,delayed release (DR/EC) 40 mg PO DAILY Rx Instructions: TAKE ONE TABLET BY MOUTH ONCE DAILY fluticasone propionate 50 mcg/actuation spray,suspension 2 spray intranasal DAILY Rx Instructions: INSTILL 2 SPRAYS IN EACH NOSTRIL DAILY Discontinued clonazepam 1 mg tablet 1 mg PO TID Discharge Order = DC NOW: Discharge Order (Routine); Ordered 07/20/25 Ordered By: Rodolfo Holcomb Referrals: Rodolfo Holcomb, DO [Physician, Orthopedics] - 07/27/25 1:15 pm Discharge Diet: Advance as tolerated Discharge Activity: Limit activity as instructed Patient Instructions: Oxycodone, Rapid Release (By mouth), Acute Wound Care (DC), Opioid Safety, Post Anesthesia Care, Patient Portal & Palmer Instructions Activity Restrictions/Additional Instructions: Okay to restart clonazepam when you get home Thank you for choosing [facility] for your care! The f ollowing is a list of instructions, from your provider, to follow upon your discharge to ensure you have the optimal recovery from your recent injury or surgery. Anterior Cervical Discectomy and Fusion: What to Expect at Home Your Recovery Follow-up care is a bess part of your treatment and safety. Be sure to make and go to all appointments, and call your doctor if you are having problems. If you do not already have a follow-up appointment made, call office in the next 1-3 days to make follow up appointment for 2 weeks at [phone]. It is also a good idea to know your test results and keep a list of the medicines you take. You can expect your neck to feel stiff or sore after surgery. This should improve in the weeks after surgery. But it may take 4 to 6 months for you to get better completely. You may have trouble sitting or standing in one position for very long and may need pain medicine in the weeks after your surgery. It may take 4 to 6 weeks to get back to your usual activities, but it may depend on what kind of surgery you had. Your throat will feel sore and it may be difficult to swallow for the first 3 days after your surgery. As long as you can get liquids down without difficulty, this should slowly improve, otherwise call our office or seek medical attention if it becomes increasingly difficult to get anything down including liquids. Avoid hot liquids for first 3-5 days. Soothing foods/liquids such as jello, pudding, and luke warm soups are recommended until swallowing improves. Staying elevated will also help, it's advised you keep propped up at while sleeping to help reduce the swelling. You may use an ice pack directly on your incision or around it on the front of your neck, using a cloth to protect your skin; and a heating pad to the back of your neck as needed. Do not use over the counter anti-inflammatory medications (Ibuprofen, Motrin, Aleve, Advil, etc) Taking these meds after having a fusion can delay fusion rates, we recommend you avoid them for the first [address] your surgery[address]. Holcomb may advise you to work with a physical therapist to strengthen the muscles around your neck and back - this will be discussed at your follow - up appointments. The pain or numbness you were having in your arms before surgery should get better or go away completely. This care sheet gives you a general idea about how long it will take for you to recover. But each person recovers at a different pace. Follow the steps below to get better as quickly as possible. How can you care for yourself at home? Activity ? Rest when you feel tired. Getting enough sleep will help you recover. ? Try to walk each day. Start by walking a little more than you did the day before. Bit by bit, increase the amount you walk. Walking boosts blood flow and helps prevent pneumonia and constipation. Walking may also decrease your muscle soreness after surgery. ? No lifting anything that is more that 5 pounds. This may include heavy grocery bags and milk containers, a heavy briefcase or backpack, cat litter or dog food bags, a child, or a vacuum hand rug cleaner. ? Avoid strenuous activities, such as bicycle riding, jogging, weightlifting, or aerobic exercise, until your doctor says it is okay. ? Do not drive until your follow-up visit after your surgery, or until your doctor says it isokay. ? Avoid taking long car trips for 2 to 4 weeks after surgery. Your neck may become tired and painful from sitting too long in one position. ? You will probably need to take 4 to 6 weeks off from work. It depends on the type of work you do and how you feel. ? You may have sex as soon as you feel able, but avoid positions that put stress on your neck or cause pain. Diet ? You can eat your normal diet. If your stomach is upset, try bland, low-fat foods like plain rice, broiled chicken, toast, and yogurt ? Drink plenty of fluids. If you have kidney, heart, or liver disease and have to limit fluids, talk with your doctor before you increase the amount of fluids you drink. ? You may notice that your bowel movements are not regular right after your surgery. This is common. Try to avoid constipation and straining with bowel movements. You may want to take a fiber supplement every day. If you have not had a bowel movement after a couple of days, ask your doctor about taking a mild laxative. Medicines ? Take pain medicines exactly as directed. 1. If Dr. Holcomb gave you a prescription medicine for pain, take lt as prescribed. 2. Do not take two or more pain medicines at the same time unless the doctor told you to. Many pain medicines have acetaminophen, which is Tylenol. Too much acetaminophen {Tylenol) can be harmful. 3. If you think your pain pill is making you sick to your stomach: 4. Take your pills after meals (unless your doctor has told you not to). 5. Ask your Dr. for a different pain pill. Incisioncare ? Remove your dressing 48hours after your surgery. Ok to shower and get the incision wet. Do not overtly wash your incision. When done, pad dry, leave open to air thereafter. Avoid creams and ointments directly on your incision. ? Your sutures in the incision will dissolve and fall out on their own. ? Keep the area clean and dry. You may cover it with a gauze bandage if it weeps or rubs against clothing; if you choose to do this, change the dressing everyday. Other instructions ? Use a heating pad, hot water bottle, or gentle massage on your back to reduce stiffness. Avoid putting heat on your incision When should you call for help? ? Call 911 anytime you think you may need emergency care. For example, call if: ? You pass out (lose consciousness). ? You have sudden chest pain and shortness of breath, or you cough upblood. ? You cannot swallow. ? You have severe pain in your neck or back. ? Call your Dr. or seek immediate medical care if: ? You have pain that does not get better after you take pain pills. ? You have loose stitches, or your incision comes open. ? You have blood or fluid draining from the incision. ? You have signs of infection, such as: 1. Increased pain, swelling, warmth, or redness. 2. Red streaks leading from the site. 3. Pus draining from the site. 4. Swollen lymph nodes in your neck or armpits. 5. A fever. ? You have severe pain in your arms. ? You have new or increased weakness or numbness in your arms. ? Watch closely for any changes in your health, and be sure to contact your doctor if: ? You do not have a bowel movement after taking a laxative. Discharge Attestations Time Spent in Discharge Care*: less than 30 min Quality Metrics Clinical Quality Measures [ No reported AMI, CVA or VTE this stay] Coding Level of Care Code Acute Code for Chg Emerita
== END 2025-07-20 10:20 | disposition home or self-care (01) | DRG 472 ==
LOC: MEDSURG 14:07
PROVIDERS: Admitting Provider Orthopaedic Surgery; PCP Nurse Practitioner Family; Visit Provider Orthopaedic Surgery
PROC: 0RG2071 Fusion of 2 or more Cervical Vertebral Joints with Autologous Tissue Substitute, Posterior Approach, Posterior Column, Open Approach (ICD-10-PCS; CPT 22600; principal; 2025-07-19 07:00)
PROC: 0RG2071 Fusion of 2 or more Cervical Vertebral Joints with Autologous Tissue Substitute, Posterior Approach, Posterior Column, Open Approach (ICD-10-PCS; CPT 63001; 2025-07-19 07:00)
DX: M48.02 Spinal stenosis, cervical region (principal); M47.12 Other spondylosis with myelopathy, cervical region; Z79.899 Other long term (current) drug therapy
CPT/HCPCS: 36415; 51702; 72040; 76000; 86850; 86900; A4649; C1713; C1776; J0330; J0690; J1100; J1171; J1885; J2250; J2270; J2371; J2405; J2704; J3010; J3260; J3373; J3490; J7030; J7120; J9999

== ENCOUNTER → 2025-07-27 12:46 | Outpatient (BNVA) | payer MEDICARE, MEDICAID, SELFPAY | PROVIDERS: PCP Nurse Practitioner Family; Visit Provider Orthopaedic Surgery | DX: Z98.890 Other specified postprocedural states (principal); Z98.1 Arthrodesis status | CPT/HCPCS: 99024 ==

== ENCOUNTER → 2025-08-01 10:27 | Outpatient (BNVA) | payer MEDICARE, MEDICAID, SELFPAY | PROVIDERS: PCP Nurse Practitioner Family; Visit Provider Orthopaedic Surgery | DX: Z98.890 Other specified postprocedural states (principal); Z98.1 Arthrodesis status | CPT/HCPCS: 99024 ==

== ENCOUNTER → 2025-08-29 10:29 | Outpatient (BNVA) | payer MEDICARE, MEDICAID, SELFPAY | PROVIDERS: PCP Nurse Practitioner Family; Visit Provider Orthopaedic Surgery | DX: Z98.890 Other specified postprocedural states (principal); Z98.1 Arthrodesis status | CPT/HCPCS: 72040; 99024 ==